=== PATIENT | female | born 1970 | race Hispanic/Latino ===

== ENCOUNTER 2018-07-09 15:59 | Inpatient (IN) | payer MEDICARE, MEDICAID ==
[2018-07-09 20:15] VITALS: BMI 31.6
[2018-07-09] MEDS ORDERED: IBUPROFEN 600 MG PO PRN (22:58)
--- NOTE | 2018-07-09 22:58 | CP.PCM.HP ---
History of Present Illness - History of Present Illness History of Present Illness: This is 47 y/o F with PMH of Seizure disorder, Anxiety, Hypertension, Osteoporosis and POD#2 s/p T11-L3 spinal fusion after a fall and L1 stress fracture who was transferred to [facility] acute rehab from [facility] for further management and treatment. As per patient, on 07/02 she was standing at home and had a seizure, patient fell in a couch and hurt her back. At [facility] CT showed L1 stress fracture, patient is POD#2 s/p T11-L3 spinal fusion. Currently patient denies any urinary/bowel incontinence, denies any LEs weakness, reports pain at surgical site but well controlled on medications. Patient reports feeling mild anxious but denies any chest pain, SOB, dizziness, abdominal pain, urinary symptoms or weakness. PMD: Dr. Truong Neurology: Dr. Acharya PMH: Seizure disorder, Anxiety, Hypertension, Osteoporosis and POD#2 s/p T11-L3 spinal fusion after a fall and L1 stress fracture PSH: Gallbladder removed, POD#2 s/p T11-L3 spinal fusion after a fall and L1 stress fracture Allg: Denies Meds: As per medrec SH: 6 cig/day, sicual alcohol use and denies illicit drug FH: HTN and DM LMP: Years ago, Menopausal ROS: As per HPI Present on Admission - Present on Admission Any Indicators Present on Admission: No History of DVT/PE: No History of Uncontrolled Diabetes: No Past Patient History - Infectious Disease Hx of Infectious Diseases: None - Past Medical History & Family History Past Medical History?: Yes - Past Social History Smoking Status: Never Smoked - CARDIAC Hx Hypertension: Yes - PULMONARY Hx Emphysema: Yes - NEUROLOGICAL Hx Seizures: Yes - HEENT Hx HEENT Problems: Yes (GLASSES) - RENAL Hx Chronic Kidney Disease: No - ENDOCRINE/METABOLIC Hx Endocrine Disorders: No - HEMATOLOGICAL/ONCOLOGICAL Hx Blood Disorders: No - INTEGUMENTARY Hx Dermatological Problems: No - MUSCULOSKELETAL/RHEUMATOLOGICAL Hx Falls: No Hx Fractures: Yes (FINGERS) Hx Osteoporosis: Yes - GASTROINTESTINAL Hx Gall Bladder Disease: Yes - GENITOURINARY/GYNECOLOGICAL Hx Genitourinary Disorders: No - PSYCHIATRIC Hx Anxiety: Yes Hx Depression: Yes Hx Substance Use: No (denies) - SURGICAL HISTORY Hx Cholecystectomy: Yes - ANESTHESIA Hx Anesthesia: Yes Hx Anesthesia Reactions: No Hx Malignant Hyperthermia: No Meds Allergies/Adverse Reactions: Allergies Allergy/AdvReac Type Severity Reaction Status Date / Time No Known Allergies Allergy Verified 09/15/17 14:58 Physical Exam - Constitutional Appears: No Acute Distress - Head Exam Head Exam: NORMAL INSPECTION - Eye Exam Eye Exam: EOMI, Normal appearance, PERRL Pupil Exam: NORMAL ACCOMODATION - ENT Exam ENT Exam: Mucous Membranes Moist - Neck Exam Neck exam: Positive for: Normal Inspection - Respiratory Exam Respiratory Exam: Clear to Auscultation Bilateral, NORMAL BREATHING PATTERN - Cardiovascular Exam Cardiovascular Exam: REGULAR RHYTHM, +S1, +S2 - GI/Abdominal Exam GI & Abdominal Exam: Normal Bowel Sounds, Soft. absent: Tenderness - Extremities Exam Extremities exam: Positive for: normal capillary refill, normal inspection, pedal pulses present. Negative for: pedal edema, tenderness - Back Exam Additional comments: 8 cm long T11 to L3 surgical scar, kat in place, draining serosanguineous fluid No sign of active infection, erythema - Neurological Exam Neurological exam: Alert, CN II-XII Intact, Oriented x3 - Psychiatric Exam Psychiatric exam: Anxious - Skin Skin Exam: Urticaria (diffuse ) Assessment & Plan - Assessment and Plan (Free Text) Assessment: A/P: 47 y/o F with PMH of Seizure disorder, Anxiety, Hypertension, Osteoporosis and POD#2 s/p T11-L3 spinal fusion after a fall and L1 stress fracture admitted to [facility] from [facility] for Rehab. POD#2 s/p T11-L3 spinal fusion after a fall and L1 stress fracture - Admit to subacute rehab - C/w dressing change BID with Bacitracin - Monitor surgical site - Pain management: Tylenol, Motrin, Oxycodone - Consult, Dr. Paredes - PT/OT - Continue management as per rehab - Follow up CXR and UA in AM (Fever in last 24 hour, follow up Bcx from [facility]) Seizure Disorder - Chronic, uncontrolled - C/w Lamictal 200mg PO BID - C/w Keppra 750mg PO BID - Consider Neuro consult Anxiety - Controlled, chronic - C/w Lexapro 20mg PO daily - Xanax 0.25 mg PO Daily PRN Hypertension - Chronic, controlled - Currently Hold all BP meds: Lisinopril-HCTZ 20-12.5, Metoprolol succinate Low blood pressure - C/w gentle hydration, NS 75mls/hr - Hold all HTN medications Hyperlipidemia - C/w lipitor - Follow up AM labs; HBA1C and Lipids Cystic Mass of Left Adnexa, Incidental Finding on CT - CT abdo/Pelvis on 07/02: 3.8 x 6.3 cm cystic mass in the left adnexa, the differential considerations include simple cyst, cystadenoma and cystadenocarcinoma. Clinical follow-up is advised and given the size of the cystic mass gynecologic consult is recommended. - U/s Pelvis/TV: 07/08: Left ovarian 3.2cm cyst with debris vs mural nodule - Consider outpt vs inpt [employer] follow up Diffuse Urticarial Rash - S/p surgery - IV Solumedrol 125 and Benadryl 25 IV once given to the patient - C/w home Claritin 10mg PO daily DVT PPX - SCD for now, s/p surgery
[2018-07-09] MEDS ORDERED: Ergocalciferol 50,000 Intl Units Cap PO SCH (23:00)
[2018-07-09] MEDS ORDERED: DiphenhydrAMINE 50 mg/ml Inj IVP STA (23:14)
[2018-07-09] MEDS: oxyCODONE 5 mg Immediate Release Tab PO PRN (23:36)
[2018-07-09] MEDS: Sodium Chloride 0.9% 1,000 ML IV SCH (23:50)
[2018-07-09] MEDS: Bacitracin 500 Units/gm Oint Foilpak UD TOP SCH (23:55)
[2018-07-10 00:52] LABS: URINE BACTERIA RARE (<OCC); URINE BILIRUBIN NEGATIVE (NEGATIVE); URINE BLOOD SMALL (NEGATIVE); URINE CLARITY CLEAR (Clear); URINE COLOR STRAW (YELLOW); URINE GLUCOSE (UA) NEG (Normal); URINE LEUKOCYTE ESTERASE NEG Leu/uL (Negative); URINE PROTEIN NEGATIVE (NEGATIVE); URINE UROBILINOGEN 0.2-1.0 mg/dL (0.2-1.0)
[2018-07-10 00:59] LABS: SQUAMOUS EPITHIAL 3 /hpf (0-5)
[2018-07-10] MEDS: oxyCODONE 5 mg Immediate Release Tab PO PRN ×2 (05:42→09:22)
[2018-07-10 06:34] LABS: BASO % 0.1 % (0.0-2.0); EOS % 0.1 % (0.0-4.0); LYMPH # 0.4 K/uL (1.0-4.3); MEAN CELL VOLUME 98.8 fl (81.0-99.0); MEAN CORPUSCULAR HEMOGLOBIN 33.3 pg (27.0-31.0); MEAN CORPUSCULAR HGB CONC 33.7 g/dL (33.0-37.0); MEAN PLATELET VOLUME 8.8 fl (7.2-11.7); MONO # 0.3 K/uL (0.0-0.8); MONO % 2.7 % (0.0-10.0); NEUT # 9.6 K/uL (1.8-7.0); NEUT % 93.1 % (50.0-75.0); PLATELET COUNT 234 K/uL (130-400); RBC 2.99 Mil/uL (3.80-5.20); RED CELL DISTRIBUTION WIDTH 13.5 % (11.5-14.5); WHITE BLOOD COUNT 10.3 K/uL (4.8-10.8)
[2018-07-10 06:45] LABS: BLOOD UREA NITROGEN 7 mg/dl (7-17); CALCIUM 8.3 mg/dL (8.4-10.2); GFR NON-AFRICAN AMERICAN 59; HDL CHOLESTEROL 23 MG/DL (30-70)
[2018-07-10 06:56] LABS: LDL CHOLESTEROL 96 mg/dL (0-129)
--- NOTE | 2018-07-10 08:39 | CP.PCM.CON ---
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 Med history postive for a fall, "back surgery", COPD, HTN, seizures, anxiety/depression, gallbladder surgery. See medical record for complete medical history and medication list. Social History: pt lives alone in a senior building. She was never and has no children. Pt has three siblings- all in [place]> Pt reported positive relationships with her siblings and relying on her sister at times. Ed.Voc: pt raised in [place]. She graduated HS/regular classes. 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 Pt reported seeing a psychiatric to assist with the disability application. Her Lexapro and Clonopin is prescribed by her PCP. Pt negative for a history of alc/sub abuse. Pt discussed spending her time watching TV primarily. Pt discussed family tensions, distress with her medical challenges/cognitive challenges. Dx: Depression/Anxiety plan: Continued sup therapy 8:10-8:30 Past Patient History - Infectious Disease Hx of Infectious Diseases: None - Past Medical History & Family History Past Medical History?: Yes - Past Social History Smoking Status: Never Smoked - CARDIAC Hx Hypertension: Yes - PULMONARY Hx Emphysema: Yes - NEUROLOGICAL Hx Seizures: Yes - HEENT Hx HEENT Problems: Yes (GLASSES) - RENAL Hx Chronic Kidney Disease: No - ENDOCRINE/METABOLIC Hx Endocrine Disorders: No - HEMATOLOGICAL/ONCOLOGICAL Hx Blood Disorders: No - INTEGUMENTARY Hx Dermatological Problems: No - MUSCULOSKELETAL/RHEUMATOLOGICAL Hx Falls: No Hx Fractures: Yes (FINGERS) Hx Osteoporosis: Yes - GASTROINTESTINAL Hx Gall Bladder Disease: Yes - GENITOURINARY/GYNECOLOGICAL Hx Genitourinary Disorders: No - PSYCHIATRIC Hx Anxiety: Yes Hx Depression: Yes Hx Substance Use: No (denies) - SURGICAL HISTORY Hx Cholecystectomy: Yes - ANESTHESIA Hx Anesthesia: Yes Hx Anesthesia Reactions: No Hx Malignant Hyperthermia: No Meds Allergies/Adverse Reactions: Allergies Allergy/AdvReac Type Severity Reaction Status Date / Time No Known Allergies Allergy Verified 09/15/17 14:58 - Medications Medications: Current Medications Acetaminophen (Tylenol 325mg Tab) 650 mg PO Q6 PRN PRN Reason: Pain, Mild (1-3) Alprazolam (Xanax) 0.25 mg PO DAILY PRN PRN Reason: Anxiety Stop: 07/16/18 22:59 Atorvastatin Calcium (Lipitor) 10 mg PO HS [facility] Last Admin: 07/09/18 23:54 Dose: 10 mg Bacitracin (Bacitracin) 1 ea TOP BID [facility] Last Admin: 07/09/18 23:55 Dose: 1 ea Ergocalciferol (Drisdol 50,000 Intl Units Cap) 1 cap PO Q7D [facility] Escitalopram Oxalate (Lexapro) 20 mg PO DAILY [facility] Sodium Chloride (Sodium Chloride 0.9%) 1,000 mls @ 75 mls/hr IV .[id number] [facility] Stop: 07/10/18 23:12 Last Admin: 07/09/18 23:50 Dose: 75 mls/hr Ibuprofen (Motrin Tab) 600 mg PO Q8 PRN PRN Reason: Fever >100.4 F Lactulose (Enulose) 20 gm PO DAILY PRN PRN Reason: Constipation Lamotrigine (Lamictal) 200 mg PO BID [facility] Last Admin: 07/09/18 23:54 Dose: 200 mg Levetiracetam (Keppra) 750 mg PO BID [facility] Last Admin: 07/09/18 23:55 Dose: 750 mg Lidocaine (Lidoderm) 1 ea TD DAILY [facility] Loratadine (Claritin) 10 mg PO DAILY [facility] Oxycodone HCl (Oxycodone Immediate Release Tab) 5 mg PO Q6 PRN PRN Reason: Pain, moderate (4-7) Oxycodone HCl (Oxycodone Immediate Release Tab) 10 mg PO Q6 PRN PRN Reason: Pain, severe (8-10) Last Admin: 07/10/18 05:42 Dose: 10 mg Pantoprazole Sodium (Protonix Ec Tab) 40 mg PO DAILY [facility] Results - Vital Signs Recent Vital Signs: Last Vital Signs Temp 98.1 F 07/10/18 07:38 Pulse 85 07/10/18 07:38 Resp 22 07/10/18 07:38 BP 96/58 L 07/10/18 07:38 Pulse Ox 93 L 07/10/18 07:38 - Labs Result Diagrams: 07/10/18 05:20 07/10/18 05:20 Labs: Laboratory Results - last 24 hr 07/10/18 07/10/18 07/10/18 00:30 05:20 05:20 WBC 10.3 RBC 2.99 L Hgb 10.0 L Hct 29.5 L MCV 98.8 MCH 33.3 H MCHC 33.7 RDW 13.5 Plt Count 234 MPV 8.8 Neut % (Auto) 93.1 H Lymph % (Auto) 4.0 L [place] % (Auto) 2.7 Eos % (Auto) 0.1 Baso % (Auto) 0.1 Neut # (Auto) 9.6 H Lymph # (Auto) 0.4 L [place] # (Auto) 0.3 Eos # (Auto) 0.0 Baso # (Auto) 0.0 Sodium 138 Potassium 4.2 Chloride 102 Carbon Dioxide 25 Anion Gap 15 BUN 7 Creatinine 1.0 Est GFR ( Amer) > 60 Est GFR (Non-Af Amer) 59 Random Glucose 132 H Calcium 8.3 L Triglycerides 95 Cholesterol 129 LDL Cholesterol Direct 96 HDL Cholesterol 23 L Urine Color Straw Urine Clarity Clear Urine pH 6.0 Ur Specific [place] 1.006 Urine Protein Negative Urine Glucose (UA) Neg Urine Ketones Negative Urine Blood Small Urine Nitrate Negative Urine Bilirubin Negative Urine Urobilinogen 0.2-1.0 Ur Leukocyte Esterase Neg Urine RBC (Auto) 8 H Urine Microscopic WBC 3 Ur Squamous Epith Cells 3 Urine Bacteria Rare
[2018-07-10 08:46] LABS: LYMPHOCYTE 5 % (20-50); MONOCYTE 3 % (0-10); NEUTROPHIL 92 % (42-75); TOTAL CELLS COUNTED 100
[2018-07-10 08:47] LABS: ANISOCYTOSIS SLIGHT; PLATELET ESTIMATE NORMAL (NORMAL); SPHEROCYTES MODERATE
[2018-07-10 08:48] LABS: LARGE PLATELETS PRESENT; TEARDROP CELLS SLIGHT
[2018-07-10] MEDS: Bacitracin 500 Units/gm Oint Foilpak UD TOP SCH ×2 (09:13→17:44)
[2018-07-10] MEDS: Pantoprazole 40 mg EC Tab PO SCH (09:14)
[2018-07-10] MEDS: Ergocalciferol 50,000 Intl Units Cap PO SCH (09:14)
[2018-07-10] MEDS: Lidocaine 5% Patch TD SCH (09:17)
--- NOTE | 2018-07-10 12:57 | CP.PCM.PN ---
Subjective - Date & Time of Evaluation Date of Evaluation: 07/10/18 Time of Evaluation: 12:30 - Subjective Subjective: Patient was seen and evaluated bedside .Complains of pain to her lower back and left hip. No acute issues overnight. Participated with PT today Hemodynamically stable Objective - Vital Signs/Intake and Output Vital Signs (last 24 hours): Temp Pulse Resp BP Pulse Ox 98.1 F 85 22 96/58 L 93 L 07/10/18 07:38 07/10/18 07:38 07/10/18 07:38 07/10/18 07:38 07/10/18 07:38 - Medications Medications: Current Medications Acetaminophen (Tylenol 325mg Tab) 650 mg PO Q6 PRN PRN Reason: Pain, Mild (1-3) Alprazolam (Xanax) 0.25 mg PO DAILY PRN PRN Reason: Anxiety Stop: 07/16/18 22:59 Atorvastatin Calcium (Lipitor) 10 mg PO HS [facility] Last Admin: 07/09/18 23:54 Dose: 10 mg Bacitracin (Bacitracin) 1 ea TOP BID [facility] Last Admin: 07/10/18 09:13 Dose: 1 ea Ergocalciferol (Drisdol 50,000 Intl Units Cap) 1 cap PO Q7D [facility] Last Admin: 07/10/18 09:14 Dose: 1 cap Escitalopram Oxalate (Lexapro) 20 mg PO DAILY [facility] Last Admin: 07/10/18 09:15 Dose: 20 mg Sodium Chloride (Sodium Chloride 0.9%) 1,000 mls @ 75 mls/hr IV .[id number] [facility] Stop: 07/10/18 23:12 Last Admin: 07/09/18 23:50 Dose: 75 mls/hr Ibuprofen (Motrin Tab) 600 mg PO Q8 PRN PRN Reason: Fever >100.4 F Lactulose (Enulose) 20 gm PO DAILY PRN PRN Reason: Constipation Lamotrigine (Lamictal) 200 mg PO BID [facility] Last Admin: 07/10/18 09:16 Dose: 200 mg Levetiracetam (Keppra) 750 mg PO BID [facility] Last Admin: 07/10/18 09:15 Dose: 750 mg Lidocaine (Lidoderm) 1 ea TD DAILY [facility] Last Admin: 07/10/18 09:17 Dose: 1 ea Loratadine (Claritin) 10 mg PO DAILY [facility] Last Admin: 07/10/18 09:27 Dose: Not Given Oxycodone HCl (Oxycodone Immediate Release Tab) 5 mg PO Q6 PRN PRN Reason: Pain, moderate (4-7) Last Admin: 07/10/18 09:22 Dose: 5 mg Oxycodone HCl (Oxycodone Immediate Release Tab) 10 mg PO Q6 PRN PRN Reason: Pain, severe (8-10) Last Admin: 07/10/18 05:42 Dose: 10 mg Pantoprazole Sodium (Protonix Ec Tab) 40 mg PO DAILY [facility] Last Admin: 07/10/18 09:14 Dose: 40 mg - Labs Labs: 07/10/18 05:20 07/10/18 05:20 - Constitutional Appears: Non-toxic, No Acute Distress - Head Exam Head Exam: ATRAUMATIC, NORMAL INSPECTION, NORMOCEPHALIC - Eye Exam Eye Exam: EOMI, Normal appearance, PERRL Pupil Exam: NORMAL ACCOMODATION - ENT Exam ENT Exam: Mucous Membranes Moist, Normal Exam - Neck Exam Neck Exam: Full ROM, Normal Inspection - Respiratory Exam Respiratory Exam: Clear to Ausculation Bilateral, NORMAL BREATHING PATTERN. absent: Rales, Rhonchi, Wheezes - GI/Abdominal Exam GI & Abdominal Exam: Soft, Normal Bowel Sounds. absent: Distended, Guarding, Tenderness, Rebound - Rectal Exam Rectal Exam: Deferred - Extremities Exam Extremities Exam: Normal Capillary Refill, Normal Inspection. absent: Pedal Edema - Back Exam Back Exam: NORMAL INSPECTION - Neurological Exam Neurological Exam: Alert, Awake, CN II-XII Intact, Oriented x3 - Psychiatric Exam Psychiatric exam: Normal Affect - Skin Skin Exam: Dry, Pallor, Warm Assessment and Plan - Assessment and Plan (Free Text) Assessment: 47 y/o F with PMH of Seizure disorder, Anxiety, Hypertension, Osteoporosis was admitted at [facility] after seizure episode with fall . She was diagnosed with L1 stress fracture and underwent T11-L3 spinal fusion. Now transferred to acute rehab for PT 1. s/p T11-L3 spinal fusion after a fall and L1 stress fracture -Complains of pain to lower back Started PT Physiatry consult with Dr. Reggie Bryant dressing to surgical incision BID pain control with Tylenol, Motrin, Oxycodone Start stool softener 2.Seizure Disorder Chronic, uncontrolled on Lamictal and Keppra 3.Anxiety/ depression chronic psychology consulted Continue Lexapro and Xanax PRN 4.Hypertension BP on the lower side so all meds on hold 5. Dyslipidemia on statin 6. Cystic Mass of Left Adnexa Incidental Finding on CT CT abdo/Pelvis on 07/02: 3.8 x 6.3 cm cystic mass in the left adnexa, the differential considerations include simple cyst, cystadenoma and cystadenocarcinoma. Clinical follow-up is advised and given the size of the cystic mass gynecologic consult is recommended. U/s Pelvis/TV: 07/08: Left ovarian 3.2cm cyst with debris vs mural nodule Follow up as outpatient 7. Diffuse Urticarial Rash post op - resolved Treated with solumderol and Claritin refusing Claritin now 8. Osteoporosis Check Vitamin D Start Calcium supplements 9. Anemia Hgb 10 unclear etiology Monitor for now and start Ferrous sulfate 10. DVT PPX SCD for now, Start Lovenox if ok with surgeon
--- NOTE | 2018-07-10 14:46 | RAD ---
Date of service: 07/10/2018 HISTORY: fever in last 24 hour COMPARISON: None available. FINDINGS: LUNGS: No active pulmonary disease. PLEURA: No significant pleural effusion identified, no pneumothorax apparent. CARDIOVASCULAR: No aortic atherosclerotic calcification present. Normal cardiac size. No pulmonary vascular congestion. OSSEOUS STRUCTURES: Posterior spinal fusion hardware is seen at the thoracolumbar spine with skin kat. VISUALIZED UPPER ABDOMEN: Normal. OTHER FINDINGS: None. IMPRESSION: No acute cardiopulmonary disease appreciated.
[2018-07-10] MEDS: Sodium Chloride 0.9% 1,000 ML IV SCH (17:48)
--- NOTE | 2018-07-10 19:48 | CP.PCM.CON ---
History of Present Illness - History of Present Illness History of Present Illness: Dr Paredes PMR consultation on Rosibel Stokes, born 1970 who has been admitted to [facility] for acute inpatient rehabilitation following an admission at [facility]. She had a seizure and L1 burst fracture and had to undergo T11-L3 pos terior fusion by Dr Vo. Post op pain but stable. Has some left hip numbness. Had a BM and no incontinence Review of Systems - Constitutional Constitutional: absent: Anorexia, Chills - EENT Eyes: absent: Change in Vision Ears: absent: Ear Discharge Nose/Mouth/Throat: absent: Nasal Congestion - Cardiovascular Cardiovascular: absent: Chest Pain - Respiratory Respiratory: absent: Dyspnea, Hemoptysis - Gastrointestinal Gastrointestinal: absent: Belching, Constipation - Musculoskeletal Musculoskeletal: Back Pain - Integumentary Integumentary: absent: Bleeding Lesions - Neurological Neurological: absent: Abnormal Movements Past Patient History - Infectious Disease Hx of Infectious Diseases: None - Past Medical History & Family History Past Medical History?: Yes - Past Social History Smoking Status: Current Some Days Smoker Alcohol: Occasional Home Situation {Lives}: Alone (can get in without steps) - CARDIAC Hx Cardiac Disorders: No Hx Hypertension: Yes - PULMONARY Hx Emphysema: Yes - NEUROLOGICAL Hx Seizures: Yes - HEENT Hx HEENT Problems: Yes (GLASSES) - RENAL Hx Chronic Kidney Disease: No - ENDOCRINE/METABOLIC Hx Endocrine Disorders: No - HEMATOLOGICAL/ONCOLOGICAL Hx Blood Disorders: No - INTEGUMENTARY Hx Dermatological Problems: No - MUSCULOSKELETAL/RHEUMATOLOGICAL Hx Falls: No Hx Fractures: Yes (FINGERS) Hx Osteoporosis: Yes - GASTROINTESTINAL Hx Gall Bladder Disease: Yes - GENITOURINARY/GYNECOLOGICAL Hx Genitourinary Disorders: No - PSYCHIATRIC Hx Anxiety: Yes Hx Depression: Yes Hx Substance Use: No (denies) - SURGICAL HISTORY Hx Cholecystectomy: Yes - ANESTHESIA Hx Anesthesia: Yes Hx Anesthesia Reactions: No Hx Malignant Hyperthermia: No Meds Allergies/Adverse Reactions: Allergies Allergy/AdvReac Type Severity Reaction Status Date / Time No Known Allergies Allergy Verified 09/15/17 14:58 - Medications Medications: Current Medications Acetaminophen (Tylenol 325mg Tab) 650 mg PO Q6 PRN PRN Reason: Pain, Mild (1-3) Alprazolam (Xanax) 0.25 mg PO DAILY PRN PRN Reason: Anxiety Stop: 07/16/18 22:59 Atorvastatin Calcium (Lipitor) 10 mg PO HS [facility] Last Admin: 07/09/18 23:54 Dose: 10 mg Bacitracin (Bacitracin) 1 ea TOP BID [facility] Last Admin: 07/10/18 17:44 Dose: 1 ea Calcium Carbonate (Oscal) 500 mg PO BID [facility] Last Admin: 07/10/18 17:48 Dose: 500 mg Docusate Sodium (Colace) 100 mg PO BID [facility] Last Admin: 07/10/18 17:51 Dose: 100 mg Enoxaparin Sodium (Lovenox) 40 mg SC DAILY [facility]; Protocol Ergocalciferol (Drisdol 50,000 Intl Units Cap) 1 cap PO Q7D [facility] Last Admin: 07/10/18 09:14 Dose: 1 cap Escitalopram Oxalate (Lexapro) 20 mg PO DAILY [facility] Last Admin: 07/10/18 09:15 Dose: 20 mg Ferrous Sulfate (Feosol) 325 mg PO BID [facility] Last Admin: 07/10/18 17:48 Dose: 325 mg Sodium Chloride (Sodium Chloride 0.9%) 1,000 mls @ 75 mls/hr IV .[id number] [facility] Stop: 07/10/18 23:12 Last Admin: 07/10/18 17:48 Dose: Not Given Ibuprofen (Motrin Tab) 600 mg PO Q8 PRN PRN Reason: Fever >100.4 F Lactulose (Enulose) 20 gm PO DAILY PRN PRN Reason: Constipation Last Admin: 07/10/18 18:48 Dose: 20 gm Lamotrigine (Lamictal) 200 mg PO BID [facility] Last Admin: 07/10/18 17:49 Dose: 200 mg Levetiracetam (Keppra) 750 mg PO BID [facility] Last Admin: 07/10/18 18:47 Dose: 750 mg Lidocaine (Lidoderm) 1 ea TD DAILY [facility] Last Admin: 07/10/18 09:17 Dose: 1 ea Loratadine (Claritin) 10 mg PO DAILY [facility] Last Admin: 07/10/18 09:27 Dose: Not Given Oxycodone HCl (Oxycodone Immediate Release Tab) 5 mg PO Q6 PRN PRN Reason: Pain, moderate (4-7) Last Admin: 07/10/18 09:22 Dose: 5 mg Oxycodone HCl (Oxycodone Immediate Release Tab) 10 mg PO Q6 PRN PRN Reason: Pain, severe (8-10) Last Admin: 07/10/18 05:42 Dose: 10 mg Pantoprazole Sodium (Protonix Ec Tab) 40 mg PO DAILY [facility] Last Admin: 07/10/18 09:14 Dose: 40 mg Physical Exam - Constitutional Appears: Non-toxic, No Acute Distress - Head Exam Head Exam: ATRAUMATIC, NORMAL INSPECTION, NORMOCEPHALIC - Eye Exam Eye Exam: EOMI - ENT Exam ENT Exam: Mucous Membranes Moist - Respiratory Exam Respiratory Exam: NORMAL BREATHING PATTERN - GI/Abdominal Exam GI & Abdominal Exam: absent: Firm - Extremities Exam Extremities exam: Negative for: calf tenderness - Neurological Exam Neurological exam: Alert, CN II-XII Intact, Oriented x3 - Psychiatric Exam Psychiatric exam: Normal Affect, Normal Mood - Skin Skin Exam: Warm Results - Vital Signs Recent Vital Signs: Last Vital Signs Temp 98.1 F 07/10/18 07:38 Pulse 94 H 07/10/18 08:51 Resp 22 07/10/18 07:38 BP 96/58 L 07/10/18 07:38 Pulse Ox 95 07/10/18 08:51 - Labs Result Diagrams: 07/10/18 05:20 07/10/18 05:20 Labs: Laboratory Results - last 24 hr 07/10/18 07/10/18 07/10/18 00:30 05:20 05:20 WBC 10.3 RBC 2.99 L Hgb 10.0 L Hct 29.5 L MCV 98.8 MCH 33.3 H MCHC 33.7 RDW 13.5 Plt Count 234 MPV 8.8 Neut % (Auto) 93.1 H Lymph % (Auto) 4.0 L [place] % (Auto) 2.7 Eos % (Auto) 0.1 Baso % (Auto) 0.1 Neut # (Auto) 9.6 H Lymph # (Auto) 0.4 L [place] # (Auto) 0.3 Eos # (Auto) 0.0 Baso # (Auto) 0.0 Neutrophils % (Manual) 92 H Lymphocytes % (Manual) 5 L Monocytes % (Manual) 3 Platelet Estimate Normal Large Platelets Present Anisocytosis (manual) Slight Macrocytosis (manual) Slight Spherocytes Moderate Tear Drop Cells Slight Sodium 138 Potassium 4.2 Chloride 102 Carbon Dioxide 25 Anion Gap 15 BUN 7 Creatinine 1.0 Est GFR ( Amer) > 60 Est GFR (Non-Af Amer) 59 Random Glucose 132 H Hemoglobin A1c Calcium 8.3 L Triglycerides 95 Cholesterol 129 LDL Cholesterol Direct 96 HDL Cholesterol 23 L 25-OH Vitamin D Total Urine Color Straw Urine Clarity Clear Urine pH 6.0 Ur Specific [place] 1.006 Urine Protein Negative Urine Glucose (UA) Neg Urine Ketones Negative Urine Blood Small Urine Nitrate Negative Urine Bilirubin Negative Urine Urobilinogen 0.2-1.0 Ur Leukocyte Esterase Neg Urine RBC (Auto) 8 H Urine Microscopic WBC 3 Ur Squamous Epith Cells 3 Urine Bacteria Rare 07/10/18 07/10/18 05:20 14:56 WBC RBC Hgb Hct MCV MCH MCHC RDW Plt Count MPV Neut % (Auto) Lymph % (Auto) [place] % (Auto) Eos % (Auto) Baso % (Auto) Neut # (Auto) Lymph # (Auto) [place] # (Auto) Eos # (Auto) Baso # (Auto) Neutrophils % (Manual) Lymphocytes % (Manual) Monocytes % (Manual) Platelet Estimate Large Platelets Anisocytosis (manual) Macrocytosis (manual) Spherocytes Tear Drop Cells Sodium Potassium Chloride Carbon Dioxide Anion Gap BUN Creatinine Est GFR ( Amer) Est GFR (Non-Af Amer) Random Glucose Hemoglobin A1c 6.0 Calcium Triglycerides Cholesterol LDL Cholesterol Direct HDL Cholesterol 25-OH Vitamin D Total < 12.8 L Urine Color Urine Clarity Urine pH Ur Specific [place] Urine Protein Urine Glucose (UA) Urine Ketones Urine Blood Urine Nitrate Urine Bilirubin Urine Urobilinogen Ur Leukocyte Esterase Urine RBC (Auto) Urine Microscopic WBC Ur Squamous Epith Cells Urine Bacteria Assessment & Plan - Assessment and Plan (Free Text) Assessment: L1 burst fracture s/p T11-L3 posterior fusion PT/OT to continue to help increase functional independence Team conference for d/c planning Pain: controlled Vascular: no evidence of DVT GI: No evidence of constipation or diarrhea Patient is an excellent acute rehabilitation candidate and will have focused pain management, wound care, PT, OT and recreational therapy to help facilitate a safe and appropriate d/c plan
[2018-07-11] MEDS: oxyCODONE 5 mg Immediate Release Tab PO PRN ×4 (03:44→23:32)
[2018-07-11 07:59] LABS: INR 1.1; PROTHROMBIN TIME 12.5 Seconds (9.8-13.1)
[2018-07-11 08:02] LABS: PARTIAL THROMBOPLASTIN TIME 30.1 Seconds (25.6-37.1)
[2018-07-11] MEDS: Pantoprazole 40 mg EC Tab PO SCH (08:41)
[2018-07-11] MEDS: Bacitracin 500 Units/gm Oint Foilpak UD TOP SCH ×2 (08:41→16:26)
[2018-07-11] MEDS: Lidocaine 5% Patch TD SCH (08:42)
[2018-07-11] MEDS: Enoxaparin 40 mg Syringe SC SCH (09:19)
[2018-07-12] MEDS: oxyCODONE 5 mg Immediate Release Tab PO PRN ×2 (06:45→19:52)
[2018-07-12] MEDS: Pantoprazole 40 mg EC Tab PO SCH (08:07)
[2018-07-12] MEDS: Bacitracin 500 Units/gm Oint Foilpak UD TOP SCH ×2 (09:00→17:01)
[2018-07-12] MEDS: Enoxaparin 40 mg Syringe SC SCH (09:07)
[2018-07-12] MEDS: Lidocaine 5% Patch TD SCH (09:08)
[2018-07-12] MEDS ORDERED: oxyCODONE 5 mg Immediate Release Tab PO STA (10:43)
[2018-07-13] MEDS: oxyCODONE 5 mg Immediate Release Tab PO PRN ×2 (04:00→10:29)
[2018-07-13 06:41] LABS: HEMOGLOBIN 10.4 g/dL (12.0-16.0); MEAN CELL VOLUME 97.7 fl (81.0-99.0); MEAN CORPUSCULAR HGB CONC 33.8 g/dL (33.0-37.0); RBC 3.16 Mil/uL (3.80-5.20); RED CELL DISTRIBUTION WIDTH 13.2 % (11.5-14.5); WHITE BLOOD COUNT 8.2 K/uL (4.8-10.8)
[2018-07-13 06:49] LABS: BLOOD UREA NITROGEN 9 mg/dl (7-17); CALCIUM 8.1 mg/dL (8.4-10.2); GFR NON-AFRICAN AMERICAN > 60
[2018-07-13] MEDS: Pantoprazole 40 mg EC Tab PO SCH (09:05)
[2018-07-13] MEDS: Enoxaparin 40 mg Syringe SC SCH (09:05)
[2018-07-13] MEDS: Bacitracin 500 Units/gm Oint Foilpak UD TOP SCH ×2 (09:06→16:40)
[2018-07-13] MEDS: Lidocaine 5% Patch TD SCH (09:06)
[2018-07-13] MEDS: Potassium Chloride 20 mEq/15 ml LIQ UD PO ONE ×2 (12:39→13:42)
[2018-07-13] MEDS ORDERED: Potassium Chloride 20 mEq ER Tab PO ONE (13:44)
--- NOTE | 2018-07-13 14:07 | CP.PCM.PN ---
Subjective - Date & Time of Evaluation Date of Evaluation: 07/13/18 Time of Evaluation: 14:05 - Subjective Subjective: Patient seen and examined; continues to have lower back pain at surgical site Controlled with pain medications, working with PT no acute events overnight Objective - Vital Signs/Intake and Output Vital Signs (last 24 hours): Temp Pulse Resp BP Pulse Ox 97.5 F L 72 20 114/75 98 07/13/18 07:34 07/13/18 07:34 07/13/18 07:34 07/13/18 07:34 07/13/18 07:34 - Medications Medications: Current Medications Acetaminophen (Tylenol 325mg Tab) 650 mg PO Q6 PRN PRN Reason: Pain, Mild (1-3) Alprazolam (Xanax) 0.25 mg PO DAILY PRN PRN Reason: Anxiety Stop: 07/16/18 22:59 Last Admin: 07/12/18 21:22 Dose: 0.25 mg Atorvastatin Calcium (Lipitor) 10 mg PO HS [facility] Last Admin: 07/12/18 21:22 Dose: 10 mg Bacitracin (Bacitracin) 1 ea TOP BID [facility] Last Admin: 07/13/18 09:06 Dose: 1 ea Calcium Carbonate (Oscal) 500 mg PO BID [facility] Last Admin: 07/13/18 09:06 Dose: 500 mg Cyclobenzaprine HCl (Flexeril) 10 mg PO Q8 PRN PRN Reason: Muscle spasm Last Admin: 07/13/18 09:05 Dose: 10 mg Docusate Sodium (Colace) 100 mg PO BID [facility] Last Admin: 07/13/18 09:05 Dose: 100 mg Enoxaparin Sodium (Lovenox) 40 mg SC DAILY [facility]; Protocol Last Admin: 07/13/18 09:05 Dose: 40 mg Ergocalciferol (Drisdol 50,000 Intl Units Cap) 1 cap PO Q7D [facility] Last Admin: 07/10/18 09:14 Dose: 1 cap Escitalopram Oxalate (Lexapro) 20 mg PO DAILY [facility] Last Admin: 07/13/18 09:06 Dose: 20 mg Ferrous Sulfate (Feosol) 325 mg PO BID [facility] Last Admin: 07/13/18 09:06 Dose: 325 mg Ibuprofen (Motrin Tab) 600 mg PO Q8 PRN PRN Reason: Fever >100.4 F Lactulose (Enulose) 20 gm PO DAILY PRN PRN Reason: Constipation Last Admin: 07/13/18 09:08 Dose: 20 gm Lamotrigine (Lamictal) 200 mg PO BID [facility] Last Admin: 07/13/18 09:04 Dose: 200 mg Levetiracetam (Keppra) 750 mg PO BID [facility] Last Admin: 07/13/18 09:04 Dose: 750 mg Lidocaine (Lidoderm) 1 ea TD DAILY [facility] Last Admin: 07/13/18 09:06 Dose: 1 ea Loratadine (Claritin) 10 mg PO DAILY [facility] Last Admin: 07/13/18 09:05 Dose: 10 mg Oxycodone HCl (Oxycodone Immediate Release Tab) 5 mg PO Q6 PRN PRN Reason: Pain, moderate (4-7) Last Admin: 07/12/18 19:52 Dose: 5 mg Oxycodone HCl (Oxycodone Immediate Release Tab) 10 mg PO Q6 PRN PRN Reason: Pain, severe (8-10) Last Admin: 07/13/18 10:29 Dose: 10 mg Pantoprazole Sodium (Protonix Ec Tab) 40 mg PO DAILY [facility] Last Admin: 07/13/18 09:05 Dose: 40 mg - Labs Labs: 07/13/18 05:35 07/13/18 05:35 PT 12.5 Seconds (9.8-13.1) 07/11/18 07:45 INR 1.1 07/11/18 07:45 APTT 30.1 Seconds (25.6-37.1) 07/11/18 07:45 - Constitutional Appears: No Acute Distress - Head Exam Head Exam: NORMAL INSPECTION - Eye Exam Eye Exam: EOMI, PERRL - ENT Exam ENT Exam: Mucous Membranes Moist - Respiratory Exam Respiratory Exam: Clear to Ausculation Bilateral, NORMAL BREATHING PATTERN - Cardiovascular Exam Cardiovascular Exam: REGULAR RHYTHM - GI/Abdominal Exam GI & Abdominal Exam: Soft, Normal Bowel Sounds - Back Exam Additional comments: dressing applied over surgical site - Neurological Exam Neurological Exam: Alert, Awake, CN II-XII Intact Assessment and Plan - Assessment and Plan (Free Text) Plan: Assessment: 47 y/o F with PMH of Seizure disorder, Anxiety, Hypertension, Osteoporosis was admitted at [facility] after seizure episode with fall . She was diagnosed with L1 stress fracture and underwent T11-L3 spinal fusion. Now transferred to acute rehab for PT 1. s/p T11-L3 spinal fusion after a fall and L1 stress fracture -Complains of pain to lower back Started PT Physiatry consult with Dr. Paredes Bacusmanacin dressing to surgical incision BID pain control with Tylenol, Motrin, Oxycodone Start stool softener 2.Seizure Disorder Chronic, uncontrolled on Lamictal and Keppra 3.Anxiety/ depression chronic psychology consulted Continue Lexapro and Xanax PRN 4.Hypertension BP on the lower side so all meds on hold 5. Dyslipidemia on statin 6. Cystic Mass of Left Adnexa Incidental Finding on CT CT abdo/Pelvis on 07/02: 3.8 x 6.3 cm cystic mass in the left adnexa, the differential considerations include simple cyst, cystadenoma and cystadenocarcinoma. Clinical follow-up is advised and given the size of the cystic mass gynecologic consult is recommended. U/s Pelvis/TV: 07/08: Left ovarian 3.2cm cyst with debris vs mural nodule Follow up as outpatient 7. Diffuse Urticarial Rash post op - resolved Treated with solumderol and Claritin refusing Claritin now 8. Osteoporosis Check Vitamin D Start Calcium supplements 9. Anemia monitor H&H 10. DVT PPX SQ Lovenox 11. Hypokalemia K of 3.0 today - will supplement and f/u on repeat chemistry
--- NOTE | 2018-07-13 17:07 | CP.PCM.PN ---
Subjective - Date & Time of Evaluation Date of Evaluation: 07/13/18 Time of Evaluation: 17:05 - Subjective Subjective: Patient seen in the room having some more pain shooting into left hip and down the leg she is otherwise comfortable at rest Normal tone and good ROM and strength when taking into account pain inhibited weakness. I will request Dr Vo to come back to evaluate. In meantime I will get on a steroid taper + constipation will give a supp. no benefit with lactulose will also get abdominal binder Objective - Vital Signs/Intake and Output Vital Signs (last 24 hours): Temp Pulse Resp BP Pulse Ox 97.5 F L 72 20 114/75 98 07/13/18 07:34 07/13/18 07:34 07/13/18 07:34 07/13/18 07:34 07/13/18 07:34 - Medications Medications: Current Medications Acetaminophen (Tylenol 325mg Tab) 650 mg PO Q6 PRN PRN Reason: Pain, Mild (1-3) Alprazolam (Xanax) 0.25 mg PO DAILY PRN PRN Reason: Anxiety Stop: 07/16/18 22:59 Last Admin: 07/12/18 21:22 Dose: 0.25 mg Atorvastatin Calcium (Lipitor) 10 mg PO HS [facility] Last Admin: 07/12/18 21:22 Dose: 10 mg Bacitracin (Bacitracin) 1 ea TOP BID [facility] Last Admin: 07/13/18 16:40 Dose: 1 ea Bisacodyl (Dulcolax) 10 mg WI ONCE ONE Stop: 07/13/18 17:02 Calcium Carbonate (Oscal) 500 mg PO BID [facility] Last Admin: 07/13/18 16:41 Dose: 500 mg Cyclobenzaprine HCl (Flexeril) 10 mg PO Q8 PRN PRN Reason: Muscle spasm Last Admin: 07/13/18 09:05 Dose: 10 mg Docusate Sodium (Colace) 100 mg PO BID [facility] Last Admin: 07/13/18 16:40 Dose: 100 mg Enoxaparin Sodium (Lovenox) 40 mg SC DAILY [facility]; Protocol Last Admin: 07/13/18 09:05 Dose: 40 mg Ergocalciferol (Drisdol 50,000 Intl Units Cap) 1 cap PO Q7D [facility] Last Admin: 07/10/18 09:14 Dose: 1 cap Escitalopram Oxalate (Lexapro) 20 mg PO DAILY [facility] Last Admin: 07/13/18 09:06 Dose: 20 mg Ferrous Sulfate (Feosol) 325 mg PO BID [facility] Last Admin: 07/13/18 16:42 Dose: 325 mg Ibuprofen (Motrin Tab) 600 mg PO Q8 PRN PRN Reason: Fever >100.4 F Lactulose (Enulose) 20 gm PO DAILY PRN PRN Reason: Constipation Last Admin: 07/13/18 09:08 Dose: 20 gm Lamotrigine (Lamictal) 200 mg PO BID [facility] Last Admin: 07/13/18 16:41 Dose: 200 mg Levetiracetam (Keppra) 750 mg PO BID [facility] Last Admin: 07/13/18 16:41 Dose: 750 mg Lidocaine (Lidoderm) 1 ea TD DAILY [facility] Last Admin: 07/13/18 09:06 Dose: 1 ea Loratadine (Claritin) 10 mg PO DAILY [facility] Last Admin: 07/13/18 09:05 Dose: 10 mg Oxycodone HCl (Oxycodone Immediate Release Tab) 5 mg PO Q6 PRN PRN Reason: Pain, moderate (4-7) Last Admin: 07/12/18 19:52 Dose: 5 mg Oxycodone HCl (Oxycodone Immediate Release Tab) 10 mg PO Q6 PRN PRN Reason: Pain, severe (8-10) Last Admin: 07/13/18 10:29 Dose: 10 mg Pantoprazole Sodium (Protonix Ec Tab) 40 mg PO DAILY [facility] Last Admin: 07/13/18 09:05 Dose: 40 mg Prednisone (Prednisone Tab) 60 mg PO Q24H [facility] Stop: 07/14/18 17:16 Prednisone (Prednisone Tab) 50 mg PO Q24H [facility] Stop: 07/16/18 17:03 Prednisone (Prednisone Tab) 40 mg PO Q24H [facility] Stop: 07/18/18 17:03 Prednisone (Prednisone Tab) 30 mg PO Q24H [facility] Stop: 07/20/18 17:03 Prednisone (Prednisone Tab) 20 mg PO Q24H [facility] Stop: 07/22/18 17:03 Prednisone (Prednisone Tab) 10 mg PO Q24H [facility] Stop: 07/24/18 17:03 - Labs Labs: 07/13/18 05:35 07/13/18 05:35 PT 12.5 Seconds (9.8-13.1) 07/11/18 07:45 INR 1.1 07/11/18 07:45 APTT 30.1 Seconds (25.6-37.1) 07/11/18 07:45
[2018-07-14 08:17] LABS: BLOOD UREA NITROGEN 12 mg/dl (7-17); CALCIUM 8.7 mg/dL (8.4-10.2); GFR NON-AFRICAN AMERICAN 59
[2018-07-14] MEDS: oxyCODONE 5 mg Immediate Release Tab PO PRN (09:27)
[2018-07-14] MEDS: Pantoprazole 40 mg EC Tab PO SCH (09:28)
[2018-07-14] MEDS: Enoxaparin 40 mg Syringe SC SCH (09:30)
[2018-07-14] MEDS: Bacitracin 500 Units/gm Oint Foilpak UD TOP SCH ×2 (09:30→17:20)
[2018-07-14] MEDS: Lidocaine 5% Patch TD SCH (09:30)
--- NOTE | 2018-07-14 10:30 | CP.PCM.CON ---
History of Present Illness - History of Present Illness History of Present Illness: SPINE CONSULT - POD #8 Pt well known to me. Sustained burst fx of L1 after seizure and underwent T11-L3 PSF with instrumentation on 07/06. Evidently was complaining of significant L sided lower back pain with radiation [facility] down lat L thigh. Amb to BR today with walker. States it's better today. Afebrile. Incision clean and dry. Neuro intact in both legs. Good ROM of both hips. Neg SLR bilat. Rec: Pt with resolving sx's post-op. Explained that can happen if she didn't move much over weekend and then started to mobilize yesterday. Encouraged her to keep moving and be patient. Past Patient History - Infectious Disease Hx of Infectious Diseases: None - Past Medical History & Family History Past Medical History?: Yes - Past Social History Smoking Status: Current Some Days Smoker Alcohol: Occasional Home Situation {Lives}: Alone (can get in without steps) - CARDIAC Hx Cardiac Disorders: No Hx Hypertension: Yes - PULMONARY Hx Emphysema: Yes - NEUROLOGICAL Hx Seizures: Yes - HEENT Hx HEENT Problems: Yes (GLASSES) - RENAL Hx Chronic Kidney Disease: No - ENDOCRINE/METABOLIC Hx Endocrine Disorders: No - HEMATOLOGICAL/ONCOLOGICAL Hx Blood Disorders: No - INTEGUMENTARY Hx Dermatological Problems: No - MUSCULOSKELETAL/RHEUMATOLOGICAL Hx Falls: No Hx Fractures: Yes (FINGERS) Hx Osteoporosis: Yes - GASTROINTESTINAL Hx Gall Bladder Disease: Yes - GENITOURINARY/GYNECOLOGICAL Hx Genitourinary Disorders: No - PSYCHIATRIC Hx Anxiety: Yes Hx Depression: Yes Hx Substance Use: No (denies) - SURGICAL HISTORY Hx Cholecystectomy: Yes - ANESTHESIA Hx Anesthesia: Yes Hx Anesthesia Reactions: No Hx Malignant Hyperthermia: No Meds Allergies/Adverse Reactions: Allergies Allergy/AdvReac Type Severity Reaction Status Date / Time No Known Allergies Allergy Verified 09/15/17 14:58 - Medications Medications: Current Medications Acetaminophen (Tylenol 325mg Tab) 650 mg PO Q6 PRN PRN Reason: Pain, Mild (1-3) Alprazolam (Xanax) 0.25 mg PO DAILY PRN PRN Reason: Anxiety Stop: 07/16/18 22:59 Last Admin: 07/12/18 21:22 Dose: 0.25 mg Atorvastatin Calcium (Lipitor) 10 mg PO HS [facility] Last Admin: 07/13/18 21:21 Dose: 10 mg Bacitracin (Bacitracin) 1 ea TOP BID [facility] Last Admin: 07/14/18 09:30 Dose: 1 ea Calcium Carbonate (Oscal) 500 mg PO BID [facility] Last Admin: 07/14/18 09:28 Dose: 500 mg Cyclobenzaprine HCl (Flexeril) 10 mg PO Q8 PRN PRN Reason: Muscle spasm Last Admin: 07/14/18 00:20 Dose: 10 mg Docusate Sodium (Colace) 100 mg PO BID [facility] Last Admin: 07/14/18 09:31 Dose: 100 mg Enoxaparin Sodium (Lovenox) 40 mg SC DAILY [facility]; Protocol Last Admin: 07/14/18 09:30 Dose: 40 mg Ergocalciferol (Drisdol 50,000 Intl Units Cap) 1 cap PO Q7D [facility] Last Admin: 07/10/18 09:14 Dose: 1 cap Escitalopram Oxalate (Lexapro) 20 mg PO DAILY [facility] Last Admin: 07/14/18 09:29 Dose: 20 mg Ferrous Sulfate (Feosol) 325 mg PO BID [facility] Last Admin: 07/14/18 09:28 Dose: 325 mg Ibuprofen (Motrin Tab) 600 mg PO Q8 PRN PRN Reason: Fever >100.4 F Lactulose (Enulose) 20 gm PO DAILY PRN PRN Reason: Constipation Last Admin: 07/14/18 09:31 Dose: 20 gm Lamotrigine (Lamictal) 200 mg PO BID [facility] Last Admin: 07/14/18 09:29 Dose: 200 mg Levetiracetam (Keppra) 750 mg PO BID [facility] Last Admin: 07/14/18 09:31 Dose: 750 mg Lidocaine (Lidoderm) 1 ea TD DAILY [facility] Last Admin: 07/14/18 09:30 Dose: 1 ea Loratadine (Claritin) 10 mg PO DAILY [facility] Last Admin: 07/14/18 09:29 Dose: 10 mg Oxycodone HCl (Oxycodone Immediate Release Tab) 5 mg PO Q6 PRN PRN Reason: Pain, moderate (4-7) Last Admin: 07/12/18 19:52 Dose: 5 mg Oxycodone HCl (Oxycodone Immediate Release Tab) 10 mg PO Q6 PRN PRN Reason: Pain, severe (8-10) Last Admin: 07/14/18 09:27 Dose: 10 mg Pantoprazole Sodium (Protonix Ec Tab) 40 mg PO DAILY [facility] Last Admin: 07/14/18 09:28 Dose: 40 mg Prednisone (Prednisone Tab) 60 mg PO Q24H [facility] Stop: 07/14/18 17:16 Last Admin: 07/13/18 20:19 Dose: 60 mg Prednisone (Prednisone Tab) 50 mg PO Q24H [facility] Stop: 07/16/18 17:03 Prednisone (Prednisone Tab) 40 mg PO Q24H [facility] Stop: 07/18/18 17:03 Prednisone (Prednisone Tab) 30 mg PO Q24H [facility] Stop: 07/20/18 17:03 Prednisone (Prednisone Tab) 20 mg PO Q24H [facility] Stop: 07/22/18 17:03 Prednisone (Prednisone Tab) 10 mg PO Q24H [facility] Stop: 07/24/18 17:03 Results - Vital Signs Recent Vital Signs: Last Vital Signs Temp 97.3 F L 07/14/18 07:33 Pulse 68 07/14/18 07:33 Resp 20 07/14/18 07:33 BP 119/79 07/14/18 07:33 Pulse Ox 94 L 07/14/18 07:33 - Labs Result Diagrams: 07/13/18 05:35 07/14/18 06:00 Labs: Laboratory Results - last 24 hr 07/14/18 06:00 Sodium 139 Potassium 4.2 Chloride 100 Carbon Dioxide 29 Anion Gap 14 BUN 12 Creatinine 1.0 Est GFR ( Amer) > 60 Est GFR (Non-Af Amer) 59 Random Glucose 139 H Calcium 8.7
--- NOTE | 2018-07-14 13:21 | PCM.PSYTMC ---
Acute Rehab Team Conference - - Vital Signs: Vital Signs (Last 8 Hours): Vital Signs 07/14/18 07/14/18 07:33 09:27 Temperature 97.3 F L 97.3 F L Pulse Rate 68 68 Respiratory 20 20 Rate Blood Pressure 119/79 119/79 O2 Sat by Pulse 94 L Oximetry Pain: 8 - Precautions: Precautions: Fall Prevention - Medications/Other Issues: Comment: Refused to participate with therapies yesterday. Complained of increased numbness on left leg. Started by Dr. Paredes on Prednisone PO. Seen by Dr. Vo today, no new orders made. - Consults: Comment: Dr. Paredes, Dr. Vo, Dr. Cabrera - Skin: Incision Site: Mid lower back Drainage: Sanguineous Dressing Status: Changed Incision: Gisel Intact, Reddened, Draining Incision Line Treatment: Cleansed with NSS , applied Bacitracin along I/L and covered with dry dressing. - Toileting: Toileting: Supervision - Bladder Management: Bladder Pattern: Normal Voiding Method: Toilet, Bedpan Bladder Management: Supervision Other Intervention:: 0 - Transfers: Transfers: Minimal Assistance - ADL's: ADL's: Minimal Assistance - Pain Management: Other Intervention:: On Oxycodone IR 5-10mg PRN - Patient/Family Teaching: Other Intervention:: Care post lminectomy , spinal and safety precautions - Goals/Time Frame: Comment: PER MULTIDISCIPLINARY CARE PLAN GOALS - Provider: Registered Nurse:: Jesusita Ivy Physical Therapy - Bed Mobility Bed Mobility: Minimal Assistance - Transfers Wheelchair to Mat: Minimal Assistance Sit to Stand: Minimal Assistance - Ambulation Level of Assistance: Contact Guard Distance (ft.): 125 Assistive Devices: Rolling Walker - Stair Negotiation Stairs: Level of Assistance: Contact Guard Number of Stairs: 4 Handrails: Bilateral - Standing Balance Static Stand: Supervision - Pain Pain (assessed during therapy session): 8 Alleviating Techniques: Medication, Ice Comment: low back, L hip - Insight/Carryover Insight/Carryover: Fair - Patient/Family Education Comment: spinal precautions, safety - Assessment/Plan Assessment: Ms. Stokes requires min A for bed mobility, min A for transfers with RW, CGA for ambulating 150 ft with RW, and CGA for stair negotiation. Pt limited by low back and L hip pain. Pt requires frequent education to adhere to spinal precautions. Pt will continue to benefit from skilled PT intervention to address deficits, reduce fall risk, and maximize functional independence. Pt refused PT/OT tx 07/13/18. - Goals Tiimeframe: 2 weeks Goals: Sit < > supine mod I. Sit < > stand transfers mod I with RW. Pt will ambulate 300 ft with RW mod I - Provider Physical Therapist:: Nataliia Luke License Number:: [id number] Occupational Therapy - Arousal/Attention/Orientation Level of Consciousness: Awake, Alert Patient Orientation: Person, Place, Time, Appropriate to Age, Appropriate to Situation Assessment Comment: +anxiety/depressed mood. -+preoccupation with L hip pain. -refused participation 07-13-18 2' pain, anxiety/depressed mood & overall discomfort. -POOR adherance to spinal precautions as evidenced by twisting and turning in bed - ADL/IADL Self Feeding: Set-up Help Grooming: Supervision, Verbal Cues, Set-up Help Dressing-Upper Ext: Supervision, Verbal Cues, Set-up Help Dressing-Lower Ext: Verbal Cues, Set-up Help, Minimal Assistance, Moderate Assistance Comment: -needs frequent reminders for adherance to spinal precautions for adls. -functional status from FridayJul 10. -pt educated on adadptive/compensatory strategies with assistive devices--for example uses/applications of dressing stick, sockaide & pit shovel operator - Sitting Balance Static Sitting: Supervision Dynamic Sitting: Reaches out of base of support, Reaches within base of support, Contact Guard Assist, Minimal Assistance Comment: needs constant reminders to adhere to spinal precautions for adls, transfers/bed mobility - Transfers Wheelchair to Bed Transfers: Verbal Cues, Set-up Help, Minimal Assistance Toilet Transfers: Verbal Cues, Minimal Assistance Comment: shower transfers: not assessed - Wheelchair Management Level of Assistance: Supervision, Verbal Cues Distance (ft.): 100 - Upper Extremity Status Right Upper Extremity Comment: AROM is WNLs Left Upper Extremity Comment: AROM is WNLs - Pain Pain (assessed during therapy session): 9 Alleviating Techniques: Medication, Ice, Distraction, Inactivity Comment: in L hip area - Insight/Carryover Insight/Carryover: Fair - Patient/Family Education Comment: *adl, transfers/mobility training using compensatory/adaptive strategies--adhering to spinal precautions--with poor carryover. *rehab/OT goals, plan of care. *encourage adl/mobility & therapy participation participation. *uses/applications of pit shovel operator, sockaide & dressing stick to facilitate adherance to spinal precautions. *work simplification/endergy conservation techniques. *educated on imprortance of participating in therapy to improve recovery/overall function - Assessment/Plan Assessment: NOTE:Pt refused therapy on Friday--07-13- on numerous attempts. Pt is a 47 year old female with dx: L1 burst fx s/p posterior fusion T11-L3 fusion with instrumentation. *Precautions: spinal precautions, falls, cardiac, seizure precautions, + anxiety/hx depression, hard of hearing. Pt presents with the following limitations: -++low back & L hip pain. -++anxiety, depressed mood. -impaired standing balance/tolerance. -impaired activity tolerance/endurance. -impaired overall strength. -impaired knowledge of adaptive/compensatory strategies & spinal precaution. -impaired safety awareness---which impact on safety/functional performance of self care, transfers bed mobility, & Iadls. Pt will continue to benefit from skilled occupational therapy to maximize function in self care, transfers, mobility, homemaking skills and Iadls using assistive devices, adaptive/compensatory strategies, work simplification/endergy conservation technques while adhering to spinal precautions. Pt will be assessed for bathroom DMEs as she progresses in rehab program. Pt will likely need 3 in one commode, shower chair with back or transfer tub bench with back pending progress. Pt will continue to be benefit from psychology for mood/anxiety issues & learning copng strategies. Pt will continue to benefit from emotional support and pain management to facilittae progress in rehab. *Goal: Mod I for adls, transfers & mobility using assistive devices while maintaining spinal/safety precautions.. - Goals Timeframe: 1 week Comment: *LOWER BODY DRESSING: CS/Supervision and verbal cues for spinal precautions--to don/doff pants/undergarment, socks, shoes. *TOILETING: CS/CG & verbal cues adhering to spinal precautions using assistive device(s). *TRANSFERS:<->bed, commode, chair and other surfaces with CG/Close Supervision and verbal cues to adhere to spinal precautions. *BATHING: Min assist and verbal cues seated adhering to spinal precautions--seated. *BED MOBILITY: CS/Supervision & verbal cues adhering to spinal precautions. *GROOMING(standing at sink): CG/Close S and verbal cues adhering to spinal precautions with asistive device. *GATHERING/TRANSPORTING ITEMS:<->closet, cupboard, & refrigerator with CG/Cs and verbal cues with assistive device. *W/C MANAGEMENT/PROPULSION: propel w/c 150 feet with mod I, manage B brakes with Mod I. *UPPER BODY DRESSING: Mod I - Provider Occupational Therapist:: Rupal Hameed License Number: [id number] Nutrition - Current Diet Current Diet/Supplement/Feedings: Heart healthy diet - Appetite Percent Meal Consumed: 50-74% - Assessment/Goals/Time Frame Assessments/Goals/Time Frame: Pt at high nutritional risk. Goals: Pt to meet at least 50% needs x 3-5 days. Pt weight to remain stable within 2-3# x 5 days. Follow-up due on 07/15/2018 - Provider Provider: Hyun Dos Santos Case Management - Discharge Plan Discharge Plan: Subacute care Rehabilitation Plan - Treatment Plan Treatment Plan: Physical Therapy, Occupational Therapy, Dietary, Patient/Family Education - Recommendation [X]: Pain Management - Discharge Plan Discharge to: Home, Subacute
--- NOTE | 2018-07-14 14:13 | PCM.OPOC ---
Physiatry Overall Plan of Care - Overall Plan of Care Estimated Length of Stay in Weeks: 2 Rehab Impairment: Mobility, Gait, Balance, Coordination Etiologic Diagnosis: Other (back surgery) - Anticipated Interventions Physical Therapy:: Yes Occupational Therapy:: Yes Speech Therapy:: No Recreational Therapy:: Yes - Therapy Goals Bed Mobility: Supervision Ambulation: Supervision Functional Positional Changes:: Supervision - Discharge Plan Identification of Barriers to Discharge: Home Situation Discharge Destination: Home
--- NOTE | 2018-07-14 19:28 | CP.PCM.PN ---
Subjective - Date & Time of Evaluation Date of Evaluation: 07/14/18 Time of Evaluation: 19:27 - Subjective Subjective: Patient seen in therapy and doing much better with the steroid taper with marked reduction in pain and able to participate in therapies now. continue current care Objective - Vital Signs/Intake and Output Vital Signs (last 24 hours): Temp Pulse Resp BP Pulse Ox 97.3 F L 101 H 20 119/79 94 L 07/14/18 09:27 07/14/18 14:23 07/14/18 09:27 07/14/18 09:27 07/14/18 07:33 - Medications Medications: Current Medications Acetaminophen (Tylenol 325mg Tab) 650 mg PO Q6 PRN PRN Reason: Pain, Mild (1-3) Alprazolam (Xanax) 0.25 mg PO DAILY PRN PRN Reason: Anxiety Stop: 07/16/18 22:59 Last Admin: 07/12/18 21:22 Dose: 0.25 mg Atorvastatin Calcium (Lipitor) 10 mg PO HS [facility] Last Admin: 07/13/18 21:21 Dose: 10 mg Bacitracin (Bacitracin) 1 ea TOP BID [facility] Last Admin: 07/14/18 17:20 Dose: 1 ea Calcium Carbonate (Oscal) 500 mg PO BID [facility] Last Admin: 07/14/18 17:19 Dose: 500 mg Cyclobenzaprine HCl (Flexeril) 10 mg PO Q8 PRN PRN Reason: Muscle spasm Last Admin: 07/14/18 00:20 Dose: 10 mg Docusate Sodium (Colace) 100 mg PO BID [facility] Last Admin: 07/14/18 17:19 Dose: 100 mg Enoxaparin Sodium (Lovenox) 40 mg SC DAILY [facility]; Protocol Last Admin: 07/14/18 09:30 Dose: 40 mg Ergocalciferol (Drisdol 50,000 Intl Units Cap) 1 cap PO Q7D [facility] Last Admin: 07/10/18 09:14 Dose: 1 cap Escitalopram Oxalate (Lexapro) 20 mg PO DAILY [facility] Last Admin: 07/14/18 09:29 Dose: 20 mg Ferrous Sulfate (Feosol) 325 mg PO BID [facility] Last Admin: 07/14/18 17:19 Dose: 325 mg Ibuprofen (Motrin Tab) 600 mg PO Q8 PRN PRN Reason: Fever >100.4 F Lactulose (Enulose) 20 gm PO DAILY PRN PRN Reason: Constipation Last Admin: 07/14/18 09:31 Dose: 20 gm Lamotrigine (Lamictal) 200 mg PO BID [facility] Last Admin: 07/14/18 17:18 Dose: 200 mg Levetiracetam (Keppra) 750 mg PO BID [facility] Last Admin: 07/14/18 17:20 Dose: 750 mg Lidocaine (Lidoderm) 1 ea TD DAILY [facility] Last Admin: 07/14/18 09:30 Dose: 1 ea Loratadine (Claritin) 10 mg PO DAILY [facility] Last Admin: 07/14/18 09:29 Dose: 10 mg Oxycodone HCl (Oxycodone Immediate Release Tab) 5 mg PO Q6 PRN PRN Reason: Pain, moderate (4-7) Last Admin: 07/12/18 19:52 Dose: 5 mg Oxycodone HCl (Oxycodone Immediate Release Tab) 10 mg PO Q6 PRN PRN Reason: Pain, severe (8-10) Last Admin: 07/14/18 09:27 Dose: 10 mg Pantoprazole Sodium (Protonix Ec Tab) 40 mg PO DAILY [facility] Last Admin: 07/14/18 09:28 Dose: 40 mg Prednisone (Prednisone Tab) 50 mg PO Q24H [facility] Stop: 07/16/18 17:03 Prednisone (Prednisone Tab) 40 mg PO Q24H [facility] Stop: 07/18/18 17:03 Prednisone (Prednisone Tab) 30 mg PO Q24H [facility] Stop: 07/20/18 17:03 Prednisone (Prednisone Tab) 20 mg PO Q24H [facility] Stop: 07/22/18 17:03 Prednisone (Prednisone Tab) 10 mg PO Q24H [facility] Stop: 07/24/18 17:03 - Labs Labs: 07/13/18 05:35 07/14/18 06:00 PT 12.5 Seconds (9.8-13.1) 07/11/18 07:45 INR 1.1 07/11/18 07:45 APTT 30.1 Seconds (25.6-37.1) 07/11/18 07:45
[2018-07-15] MEDS: oxyCODONE 5 mg Immediate Release Tab PO PRN ×3 (08:06→23:52)
[2018-07-15] MEDS: Pantoprazole 40 mg EC Tab PO SCH (08:32)
[2018-07-15] MEDS: Bacitracin 500 Units/gm Oint Foilpak UD TOP SCH ×2 (08:33→17:14)
[2018-07-15] MEDS: Lidocaine 5% Patch TD SCH (08:34)
[2018-07-15] MEDS: Enoxaparin 40 mg Syringe SC SCH (08:36)
--- NOTE | 2018-07-15 13:18 | CP.PCM.PN ---
Subjective - Date & Time of Evaluation Date of Evaluation: 07/15/18 Time of Evaluation: 13:16 - Subjective Subjective: pain controlled working with PT doing much better with the steroid taper with marked reduction in pain and able to participate in therapies Objective - Vital Signs/Intake and Output Vital Signs (last 24 hours): Temp Pulse Resp BP Pulse Ox 97.3 F L 88 19 123/84 96 07/15/18 08:37 07/15/18 08:49 07/15/18 08:37 07/15/18 08:37 07/15/18 08:37 - Medications Medications: Current Medications Acetaminophen (Tylenol 325mg Tab) 650 mg PO Q6 PRN PRN Reason: Pain, Mild (1-3) Alprazolam (Xanax) 0.25 mg PO DAILY PRN PRN Reason: Anxiety Stop: 07/16/18 22:59 Last Admin: 07/12/18 21:22 Dose: 0.25 mg Atorvastatin Calcium (Lipitor) 10 mg PO HS [facility] Last Admin: 07/14/18 21:32 Dose: 10 mg Bacitracin (Bacitracin) 1 ea TOP BID [facility] Last Admin: 07/15/18 08:33 Dose: 1 ea Calcium Carbonate (Oscal) 500 mg PO BID [facility] Last Admin: 07/15/18 08:36 Dose: 500 mg Cyclobenzaprine HCl (Flexeril) 10 mg PO Q8 PRN PRN Reason: Muscle spasm Last Admin: 07/14/18 00:20 Dose: 10 mg Docusate Sodium (Colace) 100 mg PO BID [facility] Last Admin: 07/15/18 08:31 Dose: 100 mg Enoxaparin Sodium (Lovenox) 40 mg SC DAILY [facility]; Protocol Last Admin: 07/15/18 08:36 Dose: 40 mg Ergocalciferol (Drisdol 50,000 Intl Units Cap) 1 cap PO Q7D [facility] Last Admin: 07/10/18 09:14 Dose: 1 cap Escitalopram Oxalate (Lexapro) 20 mg PO DAILY [facility] Last Admin: 07/15/18 08:32 Dose: 20 mg Ferrous Sulfate (Feosol) 325 mg PO BID [facility] Last Admin: 07/15/18 08:31 Dose: 325 mg Ibuprofen (Motrin Tab) 600 mg PO Q8 PRN PRN Reason: Fever >100.4 F Lactulose (Enulose) 20 gm PO DAILY PRN PRN Reason: Constipation Last Admin: 07/14/18 09:31 Dose: 20 gm Lamotrigine (Lamictal) 200 mg PO BID [facility] Last Admin: 07/15/18 08:34 Dose: 200 mg Levetiracetam (Keppra) 750 mg PO BID [facility] Last Admin: 07/15/18 08:33 Dose: 750 mg Lidocaine (Lidoderm) 1 ea TD DAILY [facility] Last Admin: 07/15/18 08:34 Dose: 1 ea Loratadine (Claritin) 10 mg PO DAILY [facility] Last Admin: 07/15/18 08:31 Dose: 10 mg Oxycodone HCl (Oxycodone Immediate Release Tab) 5 mg PO Q6 PRN PRN Reason: Pain, moderate (4-7) Last Admin: 07/12/18 19:52 Dose: 5 mg Oxycodone HCl (Oxycodone Immediate Release Tab) 10 mg PO Q6 PRN PRN Reason: Pain, severe (8-10) Last Admin: 07/15/18 08:06 Dose: 10 mg Pantoprazole Sodium (Protonix Ec Tab) 40 mg PO DAILY [facility] Last Admin: 07/15/18 08:32 Dose: 40 mg Prednisone (Prednisone Tab) 50 mg PO Q24H [facility] Stop: 07/16/18 17:03 Prednisone (Prednisone Tab) 40 mg PO Q24H [facility] Stop: 07/18/18 17:03 Prednisone (Prednisone Tab) 30 mg PO Q24H [facility] Stop: 07/20/18 17:03 Prednisone (Prednisone Tab) 20 mg PO Q24H [facility] Stop: 07/22/18 17:03 Prednisone (Prednisone Tab) 10 mg PO Q24H [facility] Stop: 07/24/18 17:03 - Labs Labs: 07/13/18 05:35 07/14/18 06:00 PT 12.5 Seconds (9.8-13.1) 07/11/18 07:45 INR 1.1 07/11/18 07:45 APTT 30.1 Seconds (25.6-37.1) 07/11/18 07:45 - Constitutional Appears: No Acute Distress - Eye Exam Eye Exam: EOMI, PERRL - ENT Exam ENT Exam: Mucous Membranes Moist - Respiratory Exam Respiratory Exam: NORMAL BREATHING PATTERN - Cardiovascular Exam Cardiovascular Exam: REGULAR RHYTHM - GI/Abdominal Exam GI & Abdominal Exam: Soft, Normal Bowel Sounds - Neurological Exam Neurological Exam: Alert, Awake, CN II-XII Intact, Oriented x3 Assessment and Plan - Assessment and Plan (Free Text) Assessment: 47 y/o F with PMH of Seizure disorder, Anxiety, Hypertension, Osteoporosis was admitted at [facility] after seizure episode with fall . She was diagnosed with L1 stress fracture and underwent T11-L3 spinal fusion. Now transferred to acute rehab for PT 1. s/p T11-L3 spinal fusion after a fall and L1 stress fracture Physiatry with Dr. Paredes Bacusmanacin dressing to surgical incision BID pain control with Tylenol, Motrin, Oxycodone Start stool softener doing much better with the steroid taper with marked reduction in pain and able to participate in therapies 2.Seizure Disorder Chronic, uncontrolled on Lamictal and Keppra 3.Anxiety/ depression chronic psychology consulted Continue Lexapro and Xanax PRN 4.Hypertension BP on the lower side so all meds on hold 5. Dyslipidemia on statin 6. Cystic Mass of Left Adnexa Incidental Finding on CT CT abdo/Pelvis on 07/02: 3.8 x 6.3 cm cystic mass in the left adnexa, the differential considerations include simple cyst, cystadenoma and cystadenocarcinoma. Clinical follow-up is advised and given the size of the cystic mass gynecologic consult is recommended. U/s Pelvis/TV: 07/08: Left ovarian 3.2cm cyst with debris vs mural nodule Follow up as outpatient 7. Diffuse Urticarial Rash post op - resolved Treated with solumderol and Claritin refusing Claritin now 8. Osteoporosis Start Calcium supplements 9. Anemia monitor H&H 10. DVT PPX SQ Lovenox
[2018-07-15] MEDS: Ergocalciferol 50,000 Intl Units Cap PO SCH (22:10)
[2018-07-16] MEDS: Lidocaine 5% Patch TD SCH (08:21)
[2018-07-16] MEDS: Pantoprazole 40 mg EC Tab PO SCH (08:22)
[2018-07-16] MEDS: Bacitracin 500 Units/gm Oint Foilpak UD TOP SCH ×2 (08:22→17:07)
[2018-07-16] MEDS: Enoxaparin 40 mg Syringe SC SCH (08:22)
[2018-07-16] MEDS: oxyCODONE 5 mg Immediate Release Tab PO PRN ×2 (10:01→18:55)
--- NOTE | 2018-07-16 14:00 | CP.PCM.PN ---
Subjective - Date & Time of Evaluation Date of Evaluation: 07/16/18 Time of Evaluation: 13:59 - Subjective Subjective: Patient seen in room during OT session marked improvement continues with the prednisone like night and day continue current care making great gains Objective - Vital Signs/Intake and Output Vital Signs (last 24 hours): Temp Pulse Resp BP Pulse Ox 98.1 F 62 97 H 108/72 98 07/16/18 08:40 07/16/18 08:40 07/16/18 08:40 07/16/18 08:40 07/16/18 08:40 - Medications Medications: Current Medications Acetaminophen (Tylenol 325mg Tab) 650 mg PO Q6 PRN PRN Reason: Pain, Mild (1-3) Alprazolam (Xanax) 0.25 mg PO DAILY PRN PRN Reason: Anxiety Stop: 07/18/18 22:59 Last Admin: 07/12/18 21:22 Dose: 0.25 mg Atorvastatin Calcium (Lipitor) 10 mg PO HS [facility] Last Admin: 07/15/18 22:10 Dose: 10 mg Bacitracin (Bacitracin) 1 ea TOP BID [facility] Last Admin: 07/16/18 08:22 Dose: 1 ea Bisacodyl (Dulcolax) 10 mg DE DAILY PRN PRN Reason: Constipation Calcium Carbonate (Oscal) 500 mg PO BID [facility] Last Admin: 07/16/18 08:23 Dose: 500 mg Cyclobenzaprine HCl (Flexeril) 10 mg PO Q8 PRN PRN Reason: Muscle spasm Last Admin: 07/16/18 04:39 Dose: 10 mg Docusate Sodium (Colace) 100 mg PO BID [facility] Last Admin: 07/16/18 08:23 Dose: 100 mg Ergocalciferol (Drisdol 50,000 Intl Units Cap) 1 cap PO Q7D [facility] Last Admin: 07/15/18 22:10 Dose: 1 cap Escitalopram Oxalate (Lexapro) 20 mg PO DAILY [facility] Last Admin: 07/16/18 08:23 Dose: 20 mg Ferrous Sulfate (Feosol) 325 mg PO BID [facility] Last Admin: 07/16/18 08:24 Dose: 325 mg Ibuprofen (Motrin Tab) 600 mg PO Q8 PRN PRN Reason: Fever >100.4 F Lactulose (Enulose) 20 gm PO DAILY PRN PRN Reason: Constipation Last Admin: 07/15/18 14:08 Dose: 20 gm Lamotrigine (Lamictal) 200 mg PO BID [facility] Last Admin: 07/16/18 08:22 Dose: 200 mg Levetiracetam (Keppra) 750 mg PO BID [facility] Last Admin: 07/16/18 08:23 Dose: 750 mg Lidocaine (Lidoderm) 1 ea TD DAILY [facility] Last Admin: 07/16/18 08:21 Dose: 1 ea Loratadine (Claritin) 10 mg PO DAILY [facility] Last Admin: 07/16/18 08:24 Dose: 10 mg Oxycodone HCl (Oxycodone Immediate Release Tab) 5 mg PO Q6 PRN PRN Reason: Pain, moderate (4-7) Last Admin: 07/16/18 10:01 Dose: 5 mg Oxycodone HCl (Oxycodone Immediate Release Tab) 10 mg PO Q6 PRN PRN Reason: Pain, severe (8-10) Last Admin: 07/15/18 23:52 Dose: 10 mg Pantoprazole Sodium (Protonix Ec Tab) 40 mg PO DAILY [facility] Last Admin: 07/16/18 08:22 Dose: 40 mg Prednisone (Prednisone Tab) 50 mg PO Q24H [facility] Stop: 07/16/18 17:03 Last Admin: 07/15/18 17:16 Dose: 50 mg Prednisone (Prednisone Tab) 40 mg PO Q24H [facility] Stop: 07/18/18 17:03 Prednisone (Prednisone Tab) 30 mg PO Q24H [facility] Stop: 07/20/18 17:03 Prednisone (Prednisone Tab) 20 mg PO Q24H [facility] Stop: 07/22/18 17:03 Prednisone (Prednisone Tab) 10 mg PO Q24H [facility] Stop: 07/24/18 17:03 - Labs Labs: 07/13/18 05:35 07/14/18 06:00 PT 12.5 Seconds (9.8-13.1) 07/11/18 07:45 INR 1.1 07/11/18 07:45 APTT 30.1 Seconds (25.6-37.1) 07/11/18 07:45
[2018-07-17 06:32] LABS: MEAN CORPUSCULAR HEMOGLOBIN 33.2 pg (27.0-31.0); MEAN CORPUSCULAR HGB CONC 33.9 g/dL (33.0-37.0); RBC 3.31 Mil/uL (3.80-5.20); RED CELL DISTRIBUTION WIDTH 13.3 % (11.5-14.5)
[2018-07-17 06:56] LABS: BLOOD UREA NITROGEN 21 mg/dl (7-17); CALCIUM 8.8 mg/dL (8.4-10.2); GFR NON-AFRICAN AMERICAN 59
[2018-07-17] MEDS: Bacitracin 500 Units/gm Oint Foilpak UD TOP SCH ×2 (08:51→16:35)
[2018-07-17] MEDS: Pantoprazole 40 mg EC Tab PO SCH (08:53)
[2018-07-17] MEDS: Lidocaine 5% Patch TD SCH (08:53)
[2018-07-17] MEDS: Enoxaparin 40 mg Syringe SC SCH (08:54)
--- NOTE | 2018-07-17 13:18 | CP.PCM.CON ---
History of Present Illness - History of Present Illness History of Present Illness: Pt seen for supportive therapy 12-12:20. Pt spoke of improved mood, readiness to return home and enthusiasm. Pt discussed gains and mobility. Depression and anxiety have decline with healing. Pt adjusted well. Past Patient History - Infectious Disease Hx of Infectious Diseases: None - Past Medical History & Family History Past Medical History?: Yes - Past Social History Smoking Status: Current Some Days Smoker Alcohol: Occasional Home Situation {Lives}: Alone (can get in without steps) - CARDIAC Hx Cardiac Disorders: No Hx Hypertension: Yes - PULMONARY Hx Emphysema: Yes - NEUROLOGICAL Hx Seizures: Yes - HEENT Hx HEENT Problems: Yes (GLASSES) - RENAL Hx Chronic Kidney Disease: No - ENDOCRINE/METABOLIC Hx Endocrine Disorders: No - HEMATOLOGICAL/ONCOLOGICAL Hx Blood Disorders: No - INTEGUMENTARY Hx Dermatological Problems: No - MUSCULOSKELETAL/RHEUMATOLOGICAL Hx Falls: No Hx Fractures: Yes (FINGERS) Hx Osteoporosis: Yes - GASTROINTESTINAL Hx Gall Bladder Disease: Yes - GENITOURINARY/GYNECOLOGICAL Hx Genitourinary Disorders: No - PSYCHIATRIC Hx Anxiety: Yes Hx Depression: Yes Hx Substance Use: No (denies) - SURGICAL HISTORY Hx Cholecystectomy: Yes - ANESTHESIA Hx Anesthesia: Yes Hx Anesthesia Reactions: No Hx Malignant Hyperthermia: No Meds Allergies/Adverse Reactions: Allergies Allergy/AdvReac Type Severity Reaction Status Date / Time No Known Allergies Allergy Verified 09/15/17 14:58 - Medications Medications: Current Medications Acetaminophen (Tylenol 325mg Tab) 650 mg PO Q6 PRN PRN Reason: Pain, Mild (1-3) Alprazolam (Xanax) 0.25 mg PO DAILY PRN PRN Reason: Anxiety Stop: 07/18/18 22:59 Last Admin: 07/12/18 21:22 Dose: 0.25 mg Atorvastatin Calcium (Lipitor) 10 mg PO HS [facility] Last Admin: 07/16/18 21:26 Dose: 10 mg Bacitracin (Bacitracin) 1 ea TOP BID [facility] Last Admin: 07/17/18 08:51 Dose: 1 ea Bisacodyl (Dulcolax) 10 mg [place] DAILY PRN PRN Reason: Constipation Last Admin: 07/16/18 20:16 Dose: 10 mg Calcium Carbonate (Oscal) 500 mg PO BID [facility] Last Admin: 07/17/18 08:54 Dose: 500 mg Cyclobenzaprine HCl (Flexeril) 10 mg PO Q8 PRN PRN Reason: Muscle spasm Last Admin: 07/16/18 22:50 Dose: 10 mg Docusate Sodium (Colace) 100 mg PO BID [facility] Last Admin: 07/17/18 08:52 Dose: 100 mg Enoxaparin Sodium (Lovenox) 40 mg SC DAILY [facility]; Protocol Last Admin: 07/17/18 08:54 Dose: 40 mg Ergocalciferol (Drisdol 50,000 Intl Units Cap) 1 cap PO Q7D [facility] Last Admin: 07/15/18 22:10 Dose: 1 cap Escitalopram Oxalate (Lexapro) 20 mg PO DAILY [facility] Last Admin: 07/17/18 08:53 Dose: 20 mg Ferrous Sulfate (Feosol) 325 mg PO BID [facility] Last Admin: 07/17/18 08:52 Dose: 325 mg Ibuprofen (Motrin Tab) 600 mg PO Q8 PRN PRN Reason: Fever >100.4 F Last Admin: 07/16/18 14:49 Dose: 600 mg Lactic Acid (Lac-Hydrin 12% Lotion (225 G)) 1 applic TOP TID [facility] Last Admin: 07/17/18 08:52 Dose: 1 applic Lactulose (Enulose) 20 gm PO DAILY PRN PRN Reason: Constipation Last Admin: 07/15/18 14:08 Dose: 20 gm Lamotrigine (Lamictal) 200 mg PO BID [facility] Last Admin: 07/17/18 08:53 Dose: 200 mg Levetiracetam (Keppra) 750 mg PO BID [facility] Last Admin: 07/17/18 08:51 Dose: 750 mg Lidocaine (Lidoderm) 1 ea TD DAILY [facility] Last Admin: 07/17/18 08:53 Dose: 1 ea Loratadine (Claritin) 10 mg PO DAILY [facility] Last Admin: 07/17/18 09:02 Dose: 10 mg Oxycodone HCl (Oxycodone Immediate Release Tab) 5 mg PO Q6 PRN PRN Reason: Pain, moderate (4-7) Last Admin: 07/16/18 18:55 Dose: 5 mg Oxycodone HCl (Oxycodone Immediate Release Tab) 10 mg PO Q6 PRN PRN Reason: Pain, severe (8-10) Last Admin: 07/15/18 23:52 Dose: 10 mg Pantoprazole Sodium (Protonix Ec Tab) 40 mg PO DAILY [facility] Last Admin: 07/17/18 08:53 Dose: 40 mg Prednisone (Prednisone Tab) 40 mg PO Q24H [facility] Stop: 07/18/18 17:03 Prednisone (Prednisone Tab) 30 mg PO Q24H [facility] Stop: 07/20/18 17:03 Prednisone (Prednisone Tab) 20 mg PO Q24H [facility] Stop: 07/22/18 17:03 Prednisone (Prednisone Tab) 10 mg PO Q24H [facility] Stop: 07/24/18 17:03 Results - Vital Signs Recent Vital Signs: Last Vital Signs Temp 97.0 F L 07/16/18 20:12 Pulse 74 07/16/18 20:12 Resp 20 07/16/18 20:12 BP 129/72 07/16/18 20:12 Pulse Ox 98 07/16/18 20:12 - Labs Result Diagrams: 07/17/18 05:20 07/17/18 05:20 Labs: Laboratory Results - last 24 hr 07/17/18 07/17/18 05:20 05:20 WBC 11.0 H RBC 3.31 L Hgb 11.0 L Hct 32.4 L MCV 98.0 MCH 33.2 H MCHC 33.9 RDW 13.3 Plt Count 512 H Sodium 137 Potassium 4.4 Chloride 102 Carbon Dioxide 28 Anion Gap 11 BUN 21 H Creatinine 1.0 Est GFR ( Amer) > 60 Est GFR (Non-Af Amer) 59 Random Glucose 133 H Calcium 8.8
[2018-07-17] MEDS: oxyCODONE 5 mg Immediate Release Tab PO PRN ×2 (13:40→23:24)
--- NOTE | 2018-07-17 16:33 | CP.PCM.PN ---
Subjective - Date & Time of Evaluation Date of Evaluation: 07/17/18 Time of Evaluation: 14:20 - Subjective Subjective: Patient seen and examined. Denied any complaint Objective - Vital Signs/Intake and Output Vital Signs (last 24 hours): Temp Pulse Resp BP Pulse Ox 97.0 F L 74 20 129/72 98 07/16/18 20:12 07/16/18 20:12 07/16/18 20:12 07/16/18 20:12 07/16/18 20:12 - Medications Medications: Current Medications Acetaminophen (Tylenol 325mg Tab) 650 mg PO Q6 PRN PRN Reason: Pain, Mild (1-3) Alprazolam (Xanax) 0.25 mg PO DAILY PRN PRN Reason: Anxiety Stop: 07/18/18 22:59 Last Admin: 07/12/18 21:22 Dose: 0.25 mg Atorvastatin Calcium (Lipitor) 10 mg PO HS [facility] Last Admin: 07/16/18 21:26 Dose: 10 mg Bacitracin (Bacitracin) 1 ea TOP BID [facility] Last Admin: 07/17/18 08:51 Dose: 1 ea Bisacodyl (Dulcolax) 10 mg [place] DAILY PRN PRN Reason: Constipation Last Admin: 07/16/18 20:16 Dose: 10 mg Calcium Carbonate (Oscal) 500 mg PO BID [facility] Last Admin: 07/17/18 08:54 Dose: 500 mg Cyclobenzaprine HCl (Flexeril) 10 mg PO Q8 PRN PRN Reason: Muscle spasm Last Admin: 07/16/18 22:50 Dose: 10 mg Docusate Sodium (Colace) 100 mg PO BID [facility] Last Admin: 07/17/18 08:52 Dose: 100 mg Enoxaparin Sodium (Lovenox) 40 mg SC DAILY [facility]; Protocol Last Admin: 07/17/18 08:54 Dose: 40 mg Ergocalciferol (Drisdol 50,000 Intl Units Cap) 1 cap PO Q7D [facility] Last Admin: 07/15/18 22:10 Dose: 1 cap Escitalopram Oxalate (Lexapro) 20 mg PO DAILY [facility] Last Admin: 07/17/18 08:53 Dose: 20 mg Ferrous Sulfate (Feosol) 325 mg PO BID [facility] Last Admin: 07/17/18 08:52 Dose: 325 mg Ibuprofen (Motrin Tab) 600 mg PO Q8 PRN PRN Reason: Fever >100.4 F Last Admin: 07/16/18 14:49 Dose: 600 mg Lactic Acid (Lac-Hydrin 12% Lotion (225 G)) 1 applic TOP TID [facility] Last Admin: 07/17/18 08:52 Dose: 1 applic Lactulose (Enulose) 20 gm PO DAILY PRN PRN Reason: Constipation Last Admin: 07/15/18 14:08 Dose: 20 gm Lamotrigine (Lamictal) 200 mg PO BID [facility] Last Admin: 07/17/18 08:53 Dose: 200 mg Levetiracetam (Keppra) 750 mg PO BID [facility] Last Admin: 07/17/18 08:51 Dose: 750 mg Lidocaine (Lidoderm) 1 ea TD DAILY [facility] Last Admin: 07/17/18 08:53 Dose: 1 ea Loratadine (Claritin) 10 mg PO DAILY [facility] Last Admin: 07/17/18 09:02 Dose: 10 mg Oxycodone HCl (Oxycodone Immediate Release Tab) 5 mg PO Q6 PRN PRN Reason: Pain, moderate (4-7) Last Admin: 07/17/18 13:40 Dose: 5 mg Oxycodone HCl (Oxycodone Immediate Release Tab) 10 mg PO Q6 PRN PRN Reason: Pain, severe (8-10) Last Admin: 07/15/18 23:52 Dose: 10 mg Pantoprazole Sodium (Protonix Ec Tab) 40 mg PO DAILY [facility] Last Admin: 07/17/18 08:53 Dose: 40 mg Prednisone (Prednisone Tab) 40 mg PO Q24H [facility] Stop: 07/18/18 17:03 Prednisone (Prednisone Tab) 30 mg PO Q24H [facility] Stop: 07/20/18 17:03 Prednisone (Prednisone Tab) 20 mg PO Q24H [facility] Stop: 07/22/18 17:03 Prednisone (Prednisone Tab) 10 mg PO Q24H [facility] Stop: 07/24/18 17:03 - Labs Labs: 07/17/18 05:20 07/17/18 05:20 PT 12.5 Seconds (9.8-13.1) 07/11/18 07:45 INR 1.1 07/11/18 07:45 APTT 30.1 Seconds (25.6-37.1) 07/11/18 07:45 - Constitutional Appears: No Acute Distress - Head Exam Head Exam: ATRAUMATIC - Eye Exam Eye Exam: absent: Scleral icterus - ENT Exam ENT Exam: Mucous Membranes Moist - Neck Exam Neck Exam: absent: Meningismus - Respiratory Exam Respiratory Exam: absent: Rales, Rhonchi, Wheezes, Respiratory Distress - Cardiovascular Exam Cardiovascular Exam: REGULAR RHYTHM, +S1, +S2 - GI/Abdominal Exam GI & Abdominal Exam: Soft. absent: Tenderness - Rectal Exam Rectal Exam: Deferred - Neurological Exam Neurological Exam: Alert, Oriented x3 - Psychiatric Exam Psychiatric exam: Normal Affect - Skin Skin Exam: Dry, Intact Assessment and Plan - Assessment and Plan (Free Text) Assessment: 47 yo female with history of Seizure DO, HTN and Osteoporosis was admitted at [facility] because of seizure activity complicated with L1 stress fracture caused by the fall. Patient underwent T11-L3 spinal fusion on 07/06/18 and was sent to Acute Rehab on 07/09/18 for further recuperation and therapy. 1. S/P T11-L3 spinal fusion for L1 stress fracture continue PT/OT and pain management 2. Seizure Disorder controlled continue Lamictal and Keppra 3. Anxiety/depression chronic psychology consulted Continue Lexapro and Xanax PRN 4. Hypertension BP controlled meds on hold 5. HLD continue Lipitor 6. Cystic Mass of Left Adnexa Incidental Finding on CT CT abdo/Pelvis on 07/02: 3.8 x 6.3 cm cystic mass in the left adnexa, the differential considerations include simple cyst, cystadenoma and cystadenoca rcinoma. Clinical follow-up is advised and given the size of the cystic mass gynecologic consult is recommended. U/s Pelvis/TV: 07/08: Left ovarian 3.2cm cyst with debris vs mural nodule Follow up as outpatient 7. Urticarial Rash post op resolved Prednisone on tapering dose 8. Osteoporosis on Calcium supplements 9. Anemia Hgb: 11 10. DVT prophylaxis on Lovenox
--- NOTE | 2018-07-17 18:20 | CP.PCM.PN ---
Subjective - Date & Time of Evaluation Date of Evaluation: 07/17/18 Time of Evaluation: 18:19 - Subjective Subjective: Patient seen in the room doing well much better pain control continues on the steroid taper making good progress has been a great acute rehab candidate Objective - Vital Signs/Intake and Output Vital Signs (last 24 hours): Temp Pulse Resp BP Pulse Ox 97.0 F L 73 20 129/72 98 07/16/18 20:12 07/17/18 08:49 07/16/18 20:12 07/16/18 20:12 07/16/18 20:12 - Medications Medications: Current Medications Acetaminophen (Tylenol 325mg Tab) 650 mg PO Q6 PRN PRN Reason: Pain, Mild (1-3) Alprazolam (Xanax) 0.25 mg PO DAILY PRN PRN Reason: Anxiety Stop: 07/18/18 22:59 Last Admin: 07/12/18 21:22 Dose: 0.25 mg Atorvastatin Calcium (Lipitor) 10 mg PO HS [facility] Last Admin: 07/16/18 21:26 Dose: 10 mg Bacitracin (Bacitracin) 1 ea TOP BID [facility] Last Admin: 07/17/18 16:35 Dose: 1 ea Bisacodyl (Dulcolax) 10 mg NV DAILY PRN PRN Reason: Constipation Last Admin: 07/16/18 20:16 Dose: 10 mg Calcium Carbonate (Oscal) 500 mg PO BID [facility] Last Admin: 07/17/18 16:34 Dose: 500 mg Cyclobenzaprine HCl (Flexeril) 10 mg PO Q8 PRN PRN Reason: Muscle spasm Last Admin: 07/17/18 16:35 Dose: 10 mg Docusate Sodium (Colace) 100 mg PO BID [facility] Last Admin: 07/17/18 16:33 Dose: 100 mg Enoxaparin Sodium (Lovenox) 40 mg SC DAILY [facility]; Protocol Last Admin: 07/17/18 08:54 Dose: 40 mg Ergocalciferol (Drisdol 50,000 Intl Units Cap) 1 cap PO Q7D [facility] Last Admin: 07/15/18 22:10 Dose: 1 cap Escitalopram Oxalate (Lexapro) 20 mg PO DAILY [facility] Last Admin: 07/17/18 08:53 Dose: 20 mg Ferrous Sulfate (Feosol) 325 mg PO BID [facility] Last Admin: 07/17/18 16:33 Dose: 325 mg Ibuprofen (Motrin Tab) 600 mg PO Q8 PRN PRN Reason: Fever >100.4 F Last Admin: 07/16/18 14:49 Dose: 600 mg Lactic Acid (Lac-Hydrin 12% Lotion (225 G)) 1 applic TOP TID [facility] Last Admin: 07/17/18 16:34 Dose: 1 applic Lactulose (Enulose) 20 gm PO DAILY PRN PRN Reason: Constipation Last Admin: 07/15/18 14:08 Dose: 20 gm Lamotrigine (Lamictal) 200 mg PO BID [facility] Last Admin: 07/17/18 16:32 Dose: 200 mg Levetiracetam (Keppra) 750 mg PO BID [facility] Last Admin: 07/17/18 16:33 Dose: 750 mg Lidocaine (Lidoderm) 1 ea TD DAILY [facility] Last Admin: 07/17/18 08:53 Dose: 1 ea Loratadine (Claritin) 10 mg PO DAILY [facility] Last Admin: 07/17/18 09:02 Dose: 10 mg Oxycodone HCl (Oxycodone Immediate Release Tab) 5 mg PO Q6 PRN PRN Reason: Pain, moderate (4-7) Last Admin: 07/17/18 13:40 Dose: 5 mg Oxycodone HCl (Oxycodone Immediate Release Tab) 10 mg PO Q6 PRN PRN Reason: Pain, severe (8-10) Last Admin: 07/15/18 23:52 Dose: 10 mg Pantoprazole Sodium (Protonix Ec Tab) 40 mg PO DAILY [facility] Last Admin: 07/17/18 08:53 Dose: 40 mg Prednisone (Prednisone Tab) 40 mg PO Q24H [facility] Stop: 07/18/18 17:03 Last Admin: 07/17/18 16:34 Dose: 40 mg Prednisone (Prednisone Tab) 30 mg PO Q24H [facility] Stop: 07/20/18 17:03 Prednisone (Prednisone Tab) 20 mg PO Q24H [facility] Stop: 07/22/18 17:03 Prednisone (Prednisone Tab) 10 mg PO Q24H [facility] Stop: 07/24/18 17:03 - Labs Labs: 07/17/18 05:20 07/17/18 05:20 PT 12.5 Seconds (9.8-13.1) 07/11/18 07:45 INR 1.1 07/11/18 07:45 APTT 30.1 Seconds (25.6-37.1) 07/11/18 07:45
[2018-07-18] MEDS: Enoxaparin 40 mg Syringe SC SCH (09:33)
[2018-07-18] MEDS: Bacitracin 500 Units/gm Oint Foilpak UD TOP SCH ×2 (09:33→16:43)
[2018-07-18] MEDS: Lidocaine 5% Patch TD SCH (09:35)
[2018-07-18] MEDS: Pantoprazole 40 mg EC Tab PO SCH (09:35)
[2018-07-18] MEDS: oxyCODONE 5 mg Immediate Release Tab PO PRN ×2 (14:53→22:41)
[2018-07-19] MEDS: oxyCODONE 5 mg Immediate Release Tab PO PRN ×3 (06:38→22:18)
[2018-07-19] MEDS: Bacitracin 500 Units/gm Oint Foilpak UD TOP SCH ×2 (09:45→16:34)
[2018-07-19] MEDS: Lidocaine 5% Patch TD SCH (09:47)
[2018-07-19] MEDS: Enoxaparin 40 mg Syringe SC SCH (09:47)
[2018-07-19] MEDS: Pantoprazole 40 mg EC Tab PO SCH (09:47)
[2018-07-20] MEDS: oxyCODONE 5 mg Immediate Release Tab PO PRN ×3 (04:56→20:01)
[2018-07-20 06:39] LABS: HEMOGLOBIN 11.5 g/dL (12.0-16.0); MEAN CELL VOLUME 98.8 fl (81.0-99.0); MEAN CORPUSCULAR HEMOGLOBIN 33.2 pg (27.0-31.0); MEAN CORPUSCULAR HGB CONC 33.6 g/dL (33.0-37.0); RBC 3.45 Mil/uL (3.80-5.20); RED CELL DISTRIBUTION WIDTH 13.7 % (11.5-14.5); WHITE BLOOD COUNT 11.8 K/uL (4.8-10.8)
[2018-07-20 06:41] LABS: BLOOD UREA NITROGEN 17 mg/dl (7-17); CALCIUM 8.6 mg/dL (8.4-10.2); GFR NON-AFRICAN AMERICAN 53
[2018-07-20] MEDS: Lidocaine 5% Patch TD SCH (08:24)
[2018-07-20] MEDS: Enoxaparin 40 mg Syringe SC SCH (08:25)
[2018-07-20] MEDS: Pantoprazole 40 mg EC Tab PO SCH (08:25)
[2018-07-20] MEDS: Bacitracin 500 Units/gm Oint Foilpak UD TOP SCH ×2 (08:30→16:25)
[2018-07-20] MEDS: oxyCODONE 20 mg ER Tab (oxyCONTIN) PO SCH (22:37)
[2018-07-21] MEDS: oxyCODONE 5 mg Immediate Release Tab PO PRN ×2 (02:31→07:40)
[2018-07-21] MEDS: Bacitracin 500 Units/gm Oint Foilpak UD TOP SCH (08:03)
[2018-07-21] MEDS: Enoxaparin 40 mg Syringe SC SCH (08:03)
[2018-07-21] MEDS: Pantoprazole 40 mg EC Tab PO SCH (08:06)
[2018-07-21] MEDS: Lidocaine 5% Patch TD SCH (08:06)
[2018-07-21] MEDS: oxyCODONE 20 mg ER Tab (oxyCONTIN) PO SCH (09:42)
[2018-07-21 10:09] VITALS: BP 144/78; PULSE 78; RESP 19; TEMP 97.3; O2SAT 98
--- NOTE | 2018-07-21 10:58 | CP.PCM.DIS ---
Provider - Provider Date of Admission: 07/09/18 20:25 Attending physician: Erick Ibrahim Consults: Dr Paredes Time Spent in preparation of Discharge (in minutes): 25 Diagnosis - Discharge Diagnosis (1) Status post lumbar spinal fusion Status: Acute Comment: continue pain management and PT at home (2) Seizure Status: Chronic Comment: controlled. continue Lamictal and Keppra (3) Depression Status: Chronic Comment: continue [facility] Hospital Course - Lab Results Lab Results: Most Recent Lab Values WBC 11.8 K/uL (4.8-10.8) H 07/20/18 05:30 RBC 3.45 Mil/uL (3.80-5.20) L 07/20/18 05:30 Hgb 11.5 g/dL (12.0-16.0) L 07/20/18 05:30 Hct 34.1 % (34.0-47.0) 07/20/18 05:30 MCV 98.8 fl (81.0-99.0) 07/20/18 05:30 MCH 33.2 pg (27.0-31.0) H 07/20/18 05:30 MCHC 33.6 g/dL (33.0-37.0) 07/20/18 05:30 RDW 13.7 % (11.5-14.5) 07/20/18 05:30 Plt Count 444 K/uL (130-400) H 07/20/18 05:30 MPV 8.8 fl (7.2-11.7) 07/10/18 05:20 Neut % (Auto) 93.1 % (50.0-75.0) H 07/10/18 05:20 Lymph % (Auto) 4.0 % (20.0-40.0) L 07/10/18 05:20 Centre % (Auto) 2.7 % (0.0-10.0) 07/10/18 05:20 Eos % (Auto) 0.1 % (0.0-4.0) 07/10/18 05:20 Baso % (Auto) 0.1 % (0.0-2.0) 07/10/18 05:20 Neut # (Auto) 9.6 K/uL (1.8-7.0) H 07/10/18 05:20 Lymph # (Auto) 0.4 K/uL (1.0-4.3) L 07/10/18 05:20 Centre # (Auto) 0.3 K/uL (0.0-0.8) 07/10/18 05:20 Eos # (Auto) 0.0 K/uL (0.0-0.7) 07/10/18 05:20 Baso # (Auto) 0.0 K/uL (0.0-0.2) 07/10/18 05:20 Neutrophils % (Manual) 92 % (42-75) H 07/10/18 05:20 Lymphocytes % (Manual) 5 % (20-50) L 07/10/18 05:20 Monocytes % (Manual) 3 % (0-10) 07/10/18 05:20 Platelet Estimate Normal (NORMAL) 07/10/18 05:20 Large Platelets Present 07/10/18 05:20 Anisocytosis (manual) Slight 07/10/18 05:20 Macrocytosis (manual) Slight 07/10/18 05:20 Spherocytes Moderate 07/10/18 05:20 Tear Drop Cells Slight 07/10/18 05:20 PT 12.5 Seconds (9.8-13.1) 07/11/18 07:45 INR 1.1 07/11/18 07:45 APTT 30.1 Seconds (25.6-37.1) 07/11/18 07:45 Sodium 138 mmol/l (132-148) 07/20/18 05:30 Potassium 4.5 MMOL/L (3.6-5.0) 07/20/18 05:30 Chloride 102 mmol/L (98-107) 07/20/18 05:30 Carbon Dioxide 30 mmol/L (22-30) 07/20/18 05:30 Anion Gap 11 (10-20) 07/20/18 05:30 BUN 17 mg/dl (7-17) 07/20/18 05:30 Creatinine 1.1 mg/dl (0.7-1.2) 07/20/18 05:30 Est GFR ( Amer) > 60 07/20/18 05:30 Est GFR (Non-Af Amer) 53 07/20/18 05:30 Random Glucose 112 mg/dL (65-105) H 07/20/18 05:30 Hemoglobin A1c 6.0 % (4.2-6.5) 07/10/18 05:20 Calcium 8.6 mg/dL (8.4-10.2) 07/20/18 05:30 Triglycerides 95 mg/DL (0-149) 07/10/18 05:20 Cholesterol 129 mg/dL (0-199) 07/10/18 05:20 LDL Cholesterol Direct 96 mg/dL (0-129) 07/10/18 05:20 HDL Cholesterol 23 MG/DL (30-70) L 07/10/18 05:20 25-OH Vitamin D Total < 12.8 NG/ML (30.0-100.0) L 07/10/18 14:56 Urine Color Straw (YELLOW) 07/10/18 00:30 Urine Clarity Clear (Clear) 07/10/18 00:30 Urine pH 6.0 (5.0-8.0) 07/10/18 00:30 Ur Specific [place] 1.006 (1.003-1.030) 07/10/18 00:30 Urine Protein Negative mg/dL (NEGATIVE) 07/10/18 00:30 Urine Glucose (UA) Neg mg/dL (Normal) 07/10/18 00:30 Urine Ketones Negative mg/dL (NEGATIVE) 07/10/18 00:30 Urine Blood Small (NEGATIVE) 07/10/18 00:30 Urine Nitrate Negative (NEGATIVE) 07/10/18 00:30 Urine Bilirubin Negative (NEGATIVE) 07/10/18 00:30 Urine Urobilinogen 0.2-1.0 mg/dL (0.2-1.0) 07/10/18 00:30 Ur Leukocyte Esterase Neg Qiana/uL (Negative) 07/10/18 00:30 Urine RBC (Auto) 8 /hpf (0-3) H 07/10/18 00:30 Urine Microscopic WBC 3 /hpf (0-5) 07/10/18 00:30 Ur Squamous Epith Cells 3 /hpf (0-5) 07/10/18 00:30 Urine Bacteria Rare (<OCC) 07/10/18 00:30 - Hospital Course Hospital Course: 47 yo female with history of Seizure DO, HTN and Osteoporosis was admitted at [facility] because of seizure activity complicated with L1 stress fracture caused by the fall. Patient underwent T11-L3 spinal fusion on 07/06/18 and was sent to Acute Rehab on 07/09/18 for further recuperation and therapy. Patient did well and now is ready for discharge. Discharge Exam - Head Exam Head Exam: ATRAUMATIC - Eye Exam Eye Exam: absent: Scleral icterus - ENT Exam ENT Exam: Mucous Membranes Moist - Respiratory Exam Respiratory Exam: absent: Rales, Rhonchi, Wheezes, Respiratory Distress - Cardiovascular Exam Cardiovascular Exam: REGULAR RHYTHM, +S1, +S2 - GI/Abdominal Exam GI & Abdominal Exam: Soft. absent: Tenderness - Rectal Exam Rectal Exam: Deferred - Neurological Exam Neurological exam: Alert, Oriented x3 - Psychiatric Exam Psychiatric exam: Normal Affect - Skin Skin Exam: Dry, Intact Discharge Plan - Discharge Medications Prescriptions: Metoprolol Tartrate 25 mg PO BID #30 tablet Metoprolol Tartrate [Lopressor] 25 mg PO BID #15 tab oxyCODONE [oxycodone Hydrochloride] 10 mg PO Q6 PRN #20 tab PRN Reason: Pain, Severe (8-10) oxyCODONE [oxyCONTIN Extended Release Tab] 20 mg PO Q12 #10 tabsr - Follow Up Plan Condition: GOOD Disposition: HOME/ ROUTINE Instructions: Low Back Pain in Adults, Preventing Falls
== END 2018-07-21 12:05 | disposition home health service (06) | DRG 561 ==
PROVIDERS: ADMIT Hospitalist; ATTEND Hospitalist
PROC: F07Z9FZ Gait Training/Functional Ambulation Treatment using Assistive, Adaptive, Supportive or Protective Equipment (ICD-10-PCS; principal; 2018-07-09)
PROC: F08Z4FZ Home Management Treatment using Assistive, Adaptive, Supportive or Protective Equipment (ICD-10-PCS; 2018-07-09)
PROC: F07L6FZ Therapeutic Exercise Treatment of Musculoskeletal System - Lower Back / Lower Extremity using Assistive, Adaptive, Supportive or Protective Equipment (ICD-10-PCS; 2018-07-10)
DX: S32.011D Stable burst fracture of first lumbar vertebra, subsequent encounter for fracture with routine healing (principal); Z98.1 Arthrodesis status; E87.6 Hypokalemia; F41.8 Other specified anxiety disorders; M81.0 Age-related osteoporosis without current pathological fracture; R19.09 Other intra-abdominal and pelvic swelling, mass and lump; G40.909 Epilepsy, unspecified, not intractable, without status epilepticus; I10 Essential (primary) hypertension; J44.9 Chronic obstructive pulmonary disease, unspecified; E78.5 Hyperlipidemia, unspecified; D64.9 Anemia, unspecified; K59.00 Constipation, unspecified; F17.200 Nicotine dependence, unspecified, uncomplicated; X58.XXXD Exposure to other specified factors, subsequent encounter